=== PATIENT | female | born 1930 | race Caucasian/White ===

== ENCOUNTER → 2020-06-03 | Outpatient (CLI) | payer MEDICARE ==
[~2020-06-03] MED LIST: ALPR0.25 PO; ASPI-630 PO; CALC-38 PO; ESTR0.5T3 PO; FLUO40CA9 PO; GABA300C18 PO; IOHEXOL 180 MG/ML 10 ML VIAL. ONE; MULT-245 PO; OMEG100021 PO; OMEP10SU2 PO; PRAM0.255 PO; SIMV40TA PO; UBID100C26 PO; VALS1TAB8 PO; [UNRECOGNIZED DRUG - CODE] PO; methylPREDNISolone ACETATE 40 MG/ML VIAL. ONE; methylPREDNISolone ACETATE 80 MG/ML VIAL. ONE
--- NOTE | 2020-06-03 13:25 | PAIN ---
DATE OF SERVICE: 06/03/2020 INITIAL CONSULTATION FOR PAIN CLINIC CHIEF COMPLAINT: Low back pain, bilateral lower extremity pain. HISTORY OF PRESENT ILLNESS: This is an 89-year-old female who presents with history of pain in the low back, bilateral lower extremities for many years, worse since 07/2019. She had lumbar surgery for decompression in 2016 which decreased some of the pain, but not all. The patient reports the pain is still in the low back and bilateral lower extremities, posterior gluteus, posterior thighs, lateral thighs, anterior thighs. The patient reports it is worse with walking, standing, changing positions, better with sitting or lying down, keeps her awake from sleep at night about twice a night, awakens her from sleep. The patient reports it does not affect her bowel or bladder control, but does affect her ability to walk. She is using a walker and has it with her today. The patient reports she takes it with her wherever she goes. The patient reports she has had epidural injections prior to her surgery, which were helpful. Has had physical therapy, also chiropractic treatment, all of which helped her with temporary relief recently. The patient reports she has tried tramadol, Tylenol Arthritis as well as ibuprofen, none of which have helped decrease the pain significantly. The patient describes the pain as stabbing and throbbing in the back, shooting pain with numbness and radiating pain in the lower extremities, worse during the day, is worse with activities as time goes on, also burning, cramping, and aching sensation in the legs, again right essentially equal to left. The patient rates her disability rating from 0-10, 10 being the worst, as a 7 with family and home responsibilities, 10 with recreation, 8 with social activity, 7 with self-care, 5 with occupational activities, and 5 with life support activities. 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 PAST MEDICAL HISTORY: Significant for arthritis, hypertension, non-Hodgkin's lymphoma in 1980, status post chemotherapy with remission, mitral regurgitation, hyperlipidemia, gastroesophageal reflux, urinary incontinence, frequent urinary tract infections, depression, and difficult balance. PREVIOUS SURGERY: Includes tonsillectomy, total abdominal hysterectomy, cataract extractions, lumbar decompression. CURRENT MEDICATIONS: Include daily baby aspirin, gabapentin, Xanax, Coenzyme Q10, fish oils, estradiol, Diovan, Zocor, Prilosec, Mirapex, multivitamins, calcium and glucosamine. ALLERGIES: THE PATIENT IS ALLERGIC TO CRESTOR, WELLBUTRIN, AND LIPITOR. FAMILY HISTORY: Significant for restless leg syndrome, and depression. SOCIAL HISTORY: The patient does not drink alcohol, does not smoke. Does not use any illegal, illicit or recreational drugs. She is , lives locally in [place], [place]. Reports she is currently retired. REVIEW OF SYSTEMS: The patient's review of systems is positive for those items mentioned in history of present illness. All systems reviewed and otherwise negative. It is complete, full and well documented on the patient's chart. PHYSICAL EXAMINATION: VITAL SIGNS: The patient's blood pressure 133/77, pulse is 87, respirations 16, temperature is 98.0 degrees Fahrenheit, height is 5 feet 4 inches, weight is 208 pounds. GENERAL: The patient is awake, alert, oriented, appropriate, very pleasant demeanor. HEENT: Shows normocephalic, atraumatic. Extraocular movements are intact and symmetrical. Oral cavity shows mucous membranes moist and pink. Dentition is intact. NECK: Shows anterior throat supple without palpable lymphadenopathy noted. Swallow reflex symmetrical. CHEST: Shows normal on inspection. Breath sounds are clear bilaterally. No rales, rhonchi or wheezes. HEART: Shows S1 and S2 clear. No murmurs auscultated. ABDOMEN: Soft, nontender, nondistended. No palpable organomegaly is noted. No rebound or guarding demonstrated. BACK: The patient's back shows spine grossly in midline. Slight exaggeration of thoracic kyphosis, minor flattening of lumbar lordotic curvature with well-healed surgical scar in the midline. The patient's back shows no tenderness to palpation over the spinous processes, sacrum or sacroiliac regions. The patient has good rotational motion of lumbar spine, both laterally greater than 10 degrees right and left as well as extension greater than 10 degrees, forward flexion 45 degrees without significant increase in pain. EXTREMITIES: Lower extremities show deep tendon reflexes at 1+ in patellar and tendo calcaneus tendons are equal. Motor exam is strong with 5/5 dorsiflexion, extension, quadriceps and hamstring flexion symmetrical. Peripheral pulses are 1+ posterior tibia. No peripheral edema is noted bilaterally. Straight leg raise noted to be negative for reproduction of radicular symptoms bilaterally. Gaenslen's and Jude's maneuvers are negative bilaterally as well. The patient is able to stand, stand on her toes without significant difficulty or loss of balance. The patient is using a 3-point walker actually to ambulate with wheels on it. She does have a slight shuffling gait, but appears to not favor the right or left lower extremity significantly over the other. SKIN: Shows warm and dry, good turgor. No edema. No sores, rashes or bruising. IMPRESSION: 1. This is an 89-year-old female with a long history of low back pain, bilateral lower extremity pain, worse over the past 10 months or so without specific injury or accident. 2. MRI scan of lumbar spine as noted. 3. Hypertension. 4. Arthritis. 5. Previous non-Hodgkin's lymphoma. PLAN: Options were discussed with the patient including conservative medical managements, physical therapies and interventional techniques. She would like to pursue interventional techniques. We discussed a lumbar epidural steroid injection using description as well as anatomical models to describe the procedure. Risks were then discussed including, but not limited to bleeding, infection, possibility of epidural hematoma, subsequent neurological compromise, dural puncture, headaches, spinal cord and/or nerve damage, side effects of steroid medication and poor results regarding pain control. The patient understands and wished to proceed. The patient will return to clinic in approximately 2 weeks for followup. She was counseled on return appointment, activity level and side effects to be aware of. DIAGNOSES: Lumbar radiculopathy with lumbar degenerative disk disease and lumbar spinal stenosis and lumbar post-laminectomy syndrome. PROCEDURE: Lumbar epidural steroid injection, translaminar approach L4-L5 level using C-arm fluoroscopic guidance under sterile prep and drape using local anesthetic. MEDICATION INJECTED: A total of 120 mg Depo-Medrol plus 10 mL of preservative-free normal saline and 2 mL of contrast. CONDITION AT DISCHARGE: Stable. The patient tolerated procedure well, had no complications. DAVE SCHROEDER MD DR: SAVANA/christian JOB#: [id number] / [id number] BEVERLEY Greenfield MD
== END | disposition home or self-care (01) ==
LOC: PNCL 11:02
PROVIDERS: ATTEND Anesthesiology
DX: M51.16 Intervertebral disc disorders with radiculopathy, lumbar region (principal); M48.061 Spinal stenosis, lumbar region without neurogenic claudication; M96.1 Postlaminectomy syndrome, not elsewhere classified; M19.90 Unspecified osteoarthritis, unspecified site; I10 Essential (primary) hypertension; E78.5 Hyperlipidemia, unspecified; K21.9 Gastro-esophageal reflux disease without esophagitis; Z85.72 Personal history of non-Hodgkin lymphomas; Z88.8 Allergy status to other drugs, medicaments and biological substances; Z79.899 Other long term (current) drug therapy; Z98.890 Other specified postprocedural states
CPT/HCPCS: 62323; J1030; J1040; Q9965

== ENCOUNTER → 2020-06-17 | Outpatient (CLI) | payer MEDICARE ==
[~2020-06-17] MED LIST changes: +GLUC1CAP66 PO; +HYDR-3164 PO; -[UNRECOGNIZED DRUG - CODE] PO
--- NOTE | 2020-06-17 11:32 | PDOC ---
Progress Note - Pain Clinic Date of Service: DOS: DATE: 06/17/20 TIME: 11:28 Diagnosis: Dx: Lumbar radiculopathy with lumbar degenerative disease lumbar spinal stenosis and post lumbar laminectomy syndrome History or Present Illness: HPI: 89-year-old female returns follow-up status post lumbar epidural steroid injection x1. Patient was about 25% improvement in low back and bilateral lower extremities patient reports increasing activities greater ease and comfort specially the first week she has been getting around better patient reports that her son is noted she is in walking with greater ease and comfort she also feels that she is walking better on her own patient reports he still has pain the low back in the posterior gluteus posterior lateral thighs posterior calves worse with walking standing change positions jammies not awaken her from sleep at night. Patient rates her pain a 7 on a scale of 10 is worse of the past week 7 on average to its least and 7 today. Patient was aching shooting stabbing cramping and burning in the low back on and off in intensity in the lower extremities patient reports no new motor or sensory deficits no new bowel bl adder control complaints. Patient is using ibuprofen as well as Tylenol also Voltaren gel on her back which seems to help by a mild extent as well. Physical Exam: VS: Blood pressure 134/59 pulse 87 respirations 18 temperature 98.2 F weight is 207 PE: PHYSICAL EXAMINATION: GENERAL: The patient is awake, alert, oriented, appropriate, very pleasant demeanor HEENT: Shows normocephalic, atraumatic. Extraocular movements are intact and symmetrical. Oral cavity: Mucous membranes moist and pink. Dentition is intact. NECK: Shows anterior throat supple without palpable lymphadenopathy noted. Swallow reflex symmetrical. CHEST: Shows normal on inspection. Breath sounds are clear bilaterally. HEART: Shows S1, S2 clear. No murmurs auscultated. ABDOMEN: Soft, nontender, nondistended. No palpable organomegaly is noted. No rebound or guarding demonstrated. BACK: Shows spine grossly in the midline. Normal-appearing cervical lordotic curvature. There is slightly increased thoracic kyphosis, some minor flattening of the lumbar lordotic curvature. Lumbar paraspinous muscles show symmetrical on inspection, on palpation shows some moderate tenderness diffusely throughout the upper, middle and lower distribution of the paraspinous muscles but without specific trigger points, without radiation of pain. The patient has good rotational motion of the lumbar spine, both laterally as well as extension and flexion without significant difficulty. No tenderness over the spinous processes, sacrum or sacroiliac regions. EXTREMITIES: Lower extremities show deep tendon reflexes 1+ in the patellar and tendo calcaneus tendons. Motor exam is 5 on a scale of 5 with right dorsiflexion, extension, quadriceps and hamstring flexion and 5/5 on the left. Peripheral pulses are 1+ posterior tibial. [] peripheral edema is noted bilaterally. Lower extremities are warm and dry to touch, equal in color and appearance. SKIN: Shows warm and dry, good turgor. No edema. No sores, rashes or bruising throughout. Procedure: Procedure: Options were discussed with the patient. Patient chart reviewed as her current medication regimen updated current review of systems updated today as well we will proceed with a second series lumbar epidural steroid x-ray with fluoroscopic guidance risks are again discussed including but not limited to bleeding infection possibility of epidural hematoma subsequent neurological compromise dural puncture headache spinal cord and or nerve damage side effects of steroid medication for those chronic pain control. Patient understands wished to proceed. Patient return to clinic in approximate 2 weeks for follow- up was counseled as to return appointment activity level and side effects to be aware of. Medication Injected: Med Injected: Procedure is lumbar epidural steroid injection under local anesthetic using sterile prep and drape at the L4-5 level using C-arm fluoroscopic guidance in both AP and lateral views medications injected is 120 mg Depo-Medrol + 10 mL preservative-free normal saline and 2 mL contrast- condition at discharge is stable patient tolerated procedure well had no complications. Condition at Discharge: Condition at Discharge: Condition at discharge is stable patient procedure well had no complications. DAVE SCHROEDER MD Jun 17, 2020 11:32
== END | disposition home or self-care (01) ==
LOC: PNCL 10:22
PROVIDERS: ATTEND Anesthesiology
DX: M51.16 Intervertebral disc disorders with radiculopathy, lumbar region (principal); M48.061 Spinal stenosis, lumbar region without neurogenic claudication; I10 Essential (primary) hypertension; K21.9 Gastro-esophageal reflux disease without esophagitis; Z88.8 Allergy status to other drugs, medicaments and biological substances; Z98.890 Other specified postprocedural states; Z79.899 Other long term (current) drug therapy
CPT/HCPCS: 62323; J1030; J1040; Q9965

== ENCOUNTER 2020-06-18 00:38 | Emergency (ER) | payer MEDICARE ==
[~2020-06-18] VITALS: Ht 165.1 cm; Wt 100.0 kg
[~2020-06-18 00:38] MED LIST changes: -HYDR-3164 PO; -IOHEXOL 180 MG/ML 10 ML VIAL. ONE; -methylPREDNISolone ACETATE 40 MG/ML VIAL. ONE; -methylPREDNISolone ACETATE 80 MG/ML VIAL. ONE
[2020-06-18] MEDS ORDERED: KETOROLAC 30 MG/ML VIAL. IM ONE (01:15)
[2020-06-18] MEDS ORDERED: MORPHINE SULFATE 4 MG/ML VIAL. IM ONE (01:15)
[2020-06-18] MEDS ORDERED: ONDANSETRON ODT 4 MG TAB.RAPDIS. PO ONE (01:15)
--- NOTE | 2020-06-18 01:18 | PHYS DOC ---
Past Medical History Past Medical History: GERD, Hypertension Additional Past Medical Histor: Bladder incontinence Past Surgical History: Hysterectomy, Tonsillectomy Additional Past Surgical Histo: Cataract surgery Smoking Status: Never Smoker Alcohol Use: None General Adult EDM: Chief Complaint: MUSCLE SPASM/CRAMP HPI: HPI: Patient is a 89 year old female who presents with severe lower back pain that radiates to bilateral legs that began around 3 PM on June 17. Patient states that she had an injection in her lower thoracic area that was not an epidural steroid injection earlier in the day on the . Patient states she has got severe pain with range of motion and movement that has improved with rest but is quite debilitating. Patient states the pain is sharp and radiates down both legs. Patient denies any new numbness and has some weakness in the legs that is due to pain but not neurological dysfunction. Patient denies any bowel or bladder incontinence. Patient denies any fever. Review of Systems: Review of Systems: Constitutional: Denies fever or chills. [] Eyes: Denies change in visual acuity. [] HENT: Denies nasal congestion or sore throat. [] Respiratory: Denies cough or shortness of breath. [] Cardiovascular: Denies chest pain or edema. [] GI: Denies abdominal pain, nausea, vomiting, bloody stools or diarrhea. [] : Denies dysuria. [] Musculoskeletal: Complains of back pain but no joint pain Integument: Denies rash. [] Neurologic: Denies headache, without focal weakness or sensory changes. [] No bowel or bladder incontinence Endocrine: Denies polyuria or polydipsia. [] Lymphatic: Denies swollen glands. [] Psychiatric: Denies depression or anxiety. [] Heart Score: Risk Factors: Risk Factors: DM, Current or recent (<one month) smoker, HTN, HLP, family history of CAD, obesity. Risk Scores: Score 0 - 3: 2.5% MACE over next 6 weeks - Discharge Home Score 4 - 6: 20.3% MACE over next 6 weeks - Admit for Clinical Observation Score 7 - 10: 72.7% MACE over next 6 weeks - Early Invasive Strategies Current Medications: Current Medications Medications (Trade) Dose Ordered Sig/Archie Start Time Stop Time Status Last Admin Dose Admin Ketorolac Tromethamine (Toradol Im) 30 mg 1X ONCE 06/18/20 01:15 06/18/20 01:16 UNV Morphine Sulfate (Morphine Sulfate) 4 mg 1X ONCE 06/18/20 01:15 06/18/20 01:16 UNV Ondansetron HCl (Zofran Odt) 4 mg 1X ONCE 06/18/20 01:15 06/18/20 01:16 UNV Allergies: Allergies: Allergies Coded Allergies Type Severity Reaction Last Updated Verified atorvastatin Adverse Reaction Intermediate 06/03/20 Yes bupropion Adverse Reaction Intermediate 06/03/20 Yes rosuvastatin Adverse Reaction Intermediate 06/03/20 Yes Physical Exam: PE: Constitutional: Well developed, well nourished, no acute distress, non-toxic appearance. [] HENT: Normocephalic, atraumatic, bilateral external ears normal, no trismus, n ose normal. [] Eyes: PERRLA, EOMI, conjunctiva normal, no discharge. [] Neck: Normal range of motion, no tenderness, supple, no stridor. [] Cardiovascular:Heart rate regular rhythm, peripheral pulses intact, cap refill brisk Lungs & Thorax: Bilateral breath sounds clear no respiratory distress Abdomen: soft, no tenderness, no masses, no pulsatile masses. [] Skin: Warm, dry, no erythema, no rash. [] Back: In the lower thoracic area there is a small healed over puncture site. The remaining skin is clear without erythema. Mild tenderness to palpate in the lumbar area. Significant pain with range of motion. Extremities: No tenderness, no cyanosis, no clubbing, ROM intact, no edema. [] Neurologic: Alert and oriented X 3, normal motor function, normal sensory function, no focal deficits noted. [] No saddle anesthesia, dorsiflexion to the great toes is intact bilateral lower extremities Psychologic: Affect normal, judgement normal, mood normal. [] Current Patient Data: Vital Signs: Vital Signs Date Time Temp Pulse Resp B/P (MAP) Pulse Ox O2 Delivery O2 Flow Rate FiO2 06/18/20 00:52 97.2 98 18 195/82 (119) 100 Room Air 97.2 EKG: EKG: [] Radiology/Procedures: Radiology/Procedures: [] Course & Med Decision Making: Course & Med Decision Making Pertinent Labs and Imaging studies reviewed. (See chart for details) [] Patient reassessed at 2:28 AM and feels much better. Patient feels like she is got up to go home. Patient has back pain that radiates to the legS she has normal dorsiflexion to the bilateral lower extremities. She is got no saddle anesthesia. No signs of cauda equina. No fevers to suggest epidural abscess. The injection was not in the epidural space I doubt she has a hematoma or an abscess. Dragon Disclaimer: Dragon Disclaimer: This electronic medical record was generated, in whole or in part, using a voice recognition dictation system. Departure Departure Impression: Primary Impression: Lumbar back pain with radiculopathy affecting left lower extremity Additional Impression: Lumbar back pain with radiculopathy affecting right lower extremity Disposition: HOME, SELF-CARE Condition: STABLE Referrals: BEVERLEY CASTRO (PCP) 2-3 DAYS Patient Instructions: Sciatica Additional Instructions: EMERGENCY DEPARTMENT GENERAL DISCHARGE INSTRUCTIONS THANK YOU for coming to [facility] Emergency Department (ED) today and trusting us with your care. We trust that you had a positive experience in our Emergency Department. If you wish to speak to the department Management you can contact the departmental secretary at . YOUR FOLLOW UP INSTRUCTIONS ARE FOLLOWS: Do you have a private doctor? If you do not have a private doctor, please ask for a resource list of physicians or clinics that may be able to assist you with follow up care. The Emergency Physician has interpreted your x-rays. The X-ray specialist will also review them. If there is a change in the findings you will be notified in 48 hours when at all possible. A lab test or lab culture may have been done, your results will be reviewed and you will be notified if you need a change in treatment. ADDITIONAL INSTRUCTIONS AND INFORMATION Your care today has been supervised by a physician who is specially trained in emergency care. Many problems require more than one evaluation for a complete diagnosis and treatment. We recommend that you schedule your follow up appointment as recommended to ensure complete treatment of your illness or injury. If you are unable to obtain follow up care and continue to have a problem, or if your condition worsens we recommend that you return to the ED. We are not able to safely determine your condition over the phone nor are we able to give sound medical advice over the phone. For these safety reasons, if you call for medical advice we will ask you to come to the ED for further evaluation If you have any questions regarding these discharge instructions please call the ED at . SAFETY INFORMATION In the interest of safety, wellness, and injury prevention; we encourage you to wear your seatbelt, if you smoke; quit smoking, and we encourage your family to use protective helmet for bicycling and other sporting events that present an increased risk for head injury. IF YOUR SYMPTOMS WORSEN OR NEW SYMPTOMS DEVELOP, OR YOU HAVE CONCERNS ABOUT YOUR CONDITION; OR IF YOUR CONDITION WORSENS WHILE YOU ARE WAITING FOR YOUR FOLLOW UP APPOINTMENT; EITHER CONTACT YOUR PRIMARY CARE DOCTOR, THE PHYSICIAN WHOSE NAME AND NUMBER YOU WERE GIVEN, OR RETURN TO THE ED IMMEDIATELY. Scripts Hydrocodone/Apap 5-325 (NORCO 5-325 TABLET) 1 Each Tablet 1 EACH PO PRN Q6HRS PRN for PAIN, #15 as needed for pain Prov: DAREN MAK MD 06/18/20 Justicifation of Admission Dx: Justifications for Admission: Justification of Admission Dx: N/A DAREN MAK MD Jun 18, 2020 01:18
[2020-06-18 02:26] VITALS: BP 163/69
[2020-06-18] MEDS ORDERED: HYDR-3164 PO (02:30)
== END 2020-06-18 02:55 | disposition home or self-care (01) ==
LOC: ER 00:38
DX: M54.16 Radiculopathy, lumbar region (principal); M79.604 Pain in right leg; M79.605 Pain in left leg; R53.1 Weakness; K21.9 Gastro-esophageal reflux disease without esophagitis; I10 Essential (primary) hypertension; Z90.710 Acquired absence of both cervix and uterus; Z88.8 Allergy status to other drugs, medicaments and biological substances
CPT/HCPCS: 96372; 99284; J1885; J2270

== ENCOUNTER → 2020-07-02 | Outpatient (CLI) | payer MEDICARE ==
[2020-06-18 02:26] VITALS: BP 163/69
[~2020-07-02] MED LIST changes: +BUPIVACAINE MPF 0.25% 10 ML VIAL. ONE; +HYDR-3164 PO; +methylPREDNISolone ACETATE 40 MG/ML VIAL. ONE
--- NOTE | 2020-07-02 12:01 | PDOC ---
Progress Note - Pain Clinic Date of Service: DOS: DATE: 07/02/20 TIME: 11:56 Diagnosis: Dx: Lumbar radiculopathy with lumbar degenerative disc disease lumbar spinal stenosis post lumbar automatically syndrome Myofascial pain History or Present Illness: HPI: 89-year-old female returns follow-up status post lumbar epidural stimulation x2. Patient reports about 25% improvement but after her last injection she had significant spasms and was presenting to the emergency department later that night where she received muscle relaxants as well as IV morphine. Patient ports at that time the pain subsided but still has some significant pain in the low back but much improved and much less pain in the lower extremities than she had previously. Patient was to increase her distance walking doing household activities greater ease and comfort as well as try with greater ease and comfort but is been awakened from sleep at night patient has pain on the right side with been more spastic. Patient reports she did get some muscle relaxants from her primary care physician which does help but makes her fairly drowsy. Patient ports no new motor or sensory deficits no new bowel or bladder incontinence patient reports her pain is a 10 on a scale of 10 is worse over the past week 5 on average to its least is a 5 today patient scribes as aching and shooting cramping on and off in intensity worse at night keeping her awake although she gets in a recliner she is able to sleep fairly comfortably. Physical Exam: VS: Pressure is 140/62 pulse 60 respirations 18 temperature 90.1 external height 5 feet 5 inches weight 206 pounds PE: PHYSICAL EXAMINATION: GENERAL: The patient is awake, alert, oriented, appropriate, very pleasant demeanor HEENT: Shows normocephalic, atraumatic. Extraocular movements are intact and symmetrical. Oral cavity: Mucous membranes moist and pink. NECK: Shows anterior throat supple without palpable lymphadenopathy noted. Swallow reflex symmetrical. CHEST: Shows normal on inspection. Breath sounds are clear bilaterally. HEART: Shows S1, S2 clear. No murmurs auscultated. ABDOMEN: Soft, nontender, nondistended. No palpable organomegaly is noted. No rebound or guarding demonstrated. BACK: Shows spine grossly in the midline. Normal-appearing cervical lordotic curvature. There is slightly increased thoracic kyphosis, some minor flattening of the lumbar lordotic curvature. Lumbar paraspinous muscles show symmetrical on inspection, on palpation shows some moderate tenderness bilaterally in the low thoracic and right upper middle lower distribution the paraspinous musculature in the lumbar distribution in the middle and lower distribution of the left lumbar paraspinous musculature firm ropelike very consistent with trigger point areas of musculature very tender to palpation but without specific radiation. Patient has significant tenderness in the right gluteus as well in the superior medial aspect with very firm ropelike musculature consistent with trigger point areas of musculature in this area as well again without radiation on palpation. Diffusely throughout the upper, middle and lower distribution of the paraspinous muscles bilaterally and also into the lower thoracic paraspinous musculature, firm and tender, but with specific trigger points, as noted, without radiation of pain. The patient has good rotational motion of the lumbar spine, both laterally as well as extension and flexion without significant difficulty. No tenderness over the spinous processes, sacrum or sacroiliac r egions. EXTREMITIES: Lower extremities show deep tendon reflexes 1+ in the patellar and tendo calcaneus tendons. Motor exam is 5 on a scale of 5 with right dorsiflexion, extension, quadriceps and hamstring flexion and 5/5 on the left. Peripheral pulses are 1 posterior tibial. No peripheral edema is noted bilaterally. Lower extremities are warm and dry to touch, equal in color and appearance. SKIN: Shows warm and dry, good turgor. No edema. No sores, rashes or bruising throughout. Procedure: Procedure: Options were discussed with the patient and patient's daughter who was present with her today. We will plan on trigger point injection of the identified musculature. Risks were discussed including but not limited to bleeding infection possibility of spread of local anesthetic and numbness intravascular injection sequelae and poor results regarding pain control. Patient understands wished to proceed patient return to clinic in approximately 2 weeks for follow- up was counseled to return appointment to [facility] and side effects to be aware. Medication Injected: Med Injected: Under sterile prep and drape patient in sitting position patient is thoracic lumbar and gluteus musculature was prepped using sterile prep and draped in the usual fashion identified trigger point musculature in the bilateral thoracic bilateral lumbar and right gluteus musculature was identified and injected with 25-gauge 1-1/2 inch needle after negative aspiration each injection site total medications injected 40 mg Depo-Medrol +8 cc 0.25% bupivacaine. Patient, tolerated the procedure well and had no complications. Condition at Discharge: Condition at Discharge: Condition at discharge stable patient on the procedure well had no complications DAVE SCHROEDER MD Jul 02, 2020 12:01
== END | disposition home or self-care (01) ==
LOC: PNCL 10:20
PROVIDERS: ATTEND Anesthesiology
DX: M51.16 Intervertebral disc disorders with radiculopathy, lumbar region (principal); M48.061 Spinal stenosis, lumbar region without neurogenic claudication; M79.18 Myalgia, other site; Z79.82 Long term (current) use of aspirin; Z79.899 Other long term (current) drug therapy; Z88.8 Allergy status to other drugs, medicaments and biological substances
CPT/HCPCS: 20553; J1030; J3490

== ENCOUNTER → 2020-10-01 | Outpatient (CLI) | payer MEDICARE ==
[~2020-10-01] MED LIST changes: -BUPIVACAINE MPF 0.25% 10 ML VIAL. ONE; +IOHEXOL 180 MG/ML 10 ML VIAL. ONE; +methylPREDNISolone ACETATE 80 MG/ML VIAL. ONE
--- NOTE | 2020-10-01 11:38 | PDOC ---
Progress Note - Pain Clinic Date of Service: DOS: DATE: 10/01/20 TIME: 11:35 Diagnosis: Dx: Lumbar radiculopathy with lumbar degenerative disc disease lumbar spinal stenosis and post lumbar laminectomy syndrome Myofascial pain History or Present Illness: HPI: 89-year-old female returns follow-up status post lumbar epidural steroid traction x2 and trigger point injections. Patient reports the pain is returning but was doing much better after the last epidural injection the myofascial pain is still persistent without significant reduction with trigger point injections on her last visit. Patient's last epidural injection was June 17, 2020 patient reports about 25% overall improvement initially was doing much better for the first week or 2 but the pain returned. Patient reports he is also doing much better with physical therapy at that time and was getting much stronger but she has not done much any exercising over the past 2 months or so and feels that her legs are getting weaker she has significant tenderness in the lateral hips as well as in the thighs especially in the low back rating the posterior gluteus on the left side posterior left thigh posterior left calf into the foot with some burning sensation in the leg pain becoming more progressive with time. Patient reports it is difficult having a bowel movement. Describes the pain in the back and legs burning cramping stabbing it wakes her from sleep occasionally but not most nights describes it can be constant but mostly in the leg is on and off but the back pain is constant. Patient rates her pain a 9 on scale 10 is worse with past week 6 on average and a 3 at its least and is a 6 today. Fran wilde reports no new motor or sensory deficits no bladder consult complaints. Physical Exam: VS: Blood pressure is 133/70 pulse 81 respirations 16 temperature 97.9 F weight is 201 PE: PHYSICAL EXAMINATION: GENERAL: The patient is awake, alert, oriented, appropriate, very pleasant demeanor HEENT: Shows normocephalic, atraumatic. Extraocular movements are intact and symmetrical. Oral cavity: Mucous membranes moist and pink. NECK: Shows anterior throat supple without palpable lymphadenopathy noted. Swallow reflex symmetrical. CHEST: Shows normal on inspection. Breath sounds are clear bilaterally. HEART: Shows S1, S2 clear. No murmurs auscultated. ABDOMEN: Soft, nontender, nondistended. No palpable organomegaly is noted. BACK: Shows spine grossly in the midline. Normal-appearing cervical lordotic curvature. There is slightly increased thoracic kyphosis, some minor flattening of the lumbar lordotic curvature. Lumbar paraspinous muscles show symmetrical on inspection, on palpation shows some moderate tenderness diffusely throughout the upper, middle and lower distribution of the paraspinous muscles, but without specific trigger points, without radiation of pain. The patient has good rotational motion of the lumbar spine, both laterally as well as extension and flexion without significant difficulty. No tenderness over the spinous processes, sacrum or sacroiliac regions. EXTREMITIES: Lower extremities show deep tendon reflexes 1+ in the patellar and tendo calcaneus tendons. Motor exam is 5 on a scale of 5 with right dorsiflexion, extension, quadriceps and hamstring flexion and 5/5 on the left. Peripheral pulses are 1+ posterior tibial. No peripheral edema is noted bilaterally. Lower extremities are warm and dry to touch, equal in color and appearance. Patient has moderate tenderness over the bilateral greater trochanters more on the left than the right without specific radiation. SKIN: Shows warm and dry, good turgor. No edema. No sores, rashes or bruising throughout. Procedure: Procedure: Patient discussed with the patient patient daughter who accompanied her visit today. We will proceed with a third in the series lumbar epidural steroid injection today with fluoroscopic guidance. Risks were discussed including but not limited to: Bleeding, infection, possibility of epidural hematoma and subsequent neurological compromise, dural puncture, headaches, spinal cord and/or nerve damage, side effects of steroid medication, and poor results regarding pain control. Patient understands wished to proceed. Patient will return to the clinic in approximate 2 weeks for follow-up, was counseled as to return appointment activity level and side effects to be aware of. Medication Injected: Med Injected: Procedure is lumbar epidural steroid injection under local anesthetic using sterile prep and drape at the L5-S1 level using C-arm fluoroscopic guidance in both AP and lateral views medications injected is 120 mg Depo-Medrol + 10 mL preservative-free normal saline and 2 mL contrast- condition at discharge is stable patient tolerated procedure well had no complications. Condition at Discharge: Condition at Discharge: Condition at discharge stable, patient tolerated seizure well had no complications. We will arrange for home physical therapy as well orders were sent. DAVE SCHROEDER MD Oct 01, 2020 11:38
== END | disposition home or self-care (01) ==
LOC: PNCL 09:53
PROVIDERS: ATTEND Anesthesiology
DX: M51.16 Intervertebral disc disorders with radiculopathy, lumbar region (principal); M48.061 Spinal stenosis, lumbar region without neurogenic claudication; M96.1 Postlaminectomy syndrome, not elsewhere classified; M79.18 Myalgia, other site; Z79.82 Long term (current) use of aspirin; Z79.899 Other long term (current) drug therapy; Z98.890 Other specified postprocedural states; Z88.8 Allergy status to other drugs, medicaments and biological substances
CPT/HCPCS: 62323; J1030; J1040; Q9965

== ENCOUNTER → 2020-12-08 | Outpatient (CLI) | payer MEDICARE ==
[~2020-12-08] MED LIST changes: +ACET-1871 PO; +IBUP-1027 PO; +METH-38 PO
--- NOTE | 2020-12-08 10:53 | PDOC ---
Progress Note - Pain Clinic Date of Service: DOS: DATE: 12/08/20 TIME: 10:49 Diagnosis: Dx: Lumbar radiculopathy with lumbar degenerative disc disease lumbar spinal stenosis and post lumbar laminectomy syndrome Myofascial pain History or Present Illness: HPI: 89-year-old female returns to follow-up status post lumbar epidural steroid injections x3 most recent October 01, 2020. Patient reports she did very well with about a 75% improvement overall now is about 50% improvement since her last visit patient reports pain is returning in the low back and the bilateral lower extremities mostly the posterior gluteus posterior lateral thighs posterior calv es worse with walking standing changing positions and also her balance has been off as well. Patient reports pain is aching sharp dull tight shooting in the back stabbing and radiating the lower extremities are cramping in the back as well can be severe with activity but on and off in intensity better with sitting or laying down awakens her from sleep. More recently about every 4-5 hours. Patient reports she does better with heat application stretching and she is seeing a physical therapist currently which is helpful as well. Patient rates the pain is a 10 on scale 10 is worse over the past week 7 on average 1 its least and is a 7 today. Patient reports she would like to try different physical therapist though as she feels when she has now is not suppressive it she needs massages patient son who is with her today reports that he will find a different therapist as he knows when that she can see. Physical Exam: VS: Blood pressure is 152/85 pulse 83 respirations 16 temperature 98.0 F weight is 200 pounds PE: PHYSICAL EXAMINATION: GENERAL: The patient is awake, alert, oriented, appropriate, very pleasant demeanor HEENT: Shows normocephalic, atraumatic. Extraocular movements are intact and symmetrical. Oral cavity: Mucous membranes moist and pink. NECK: Shows anterior throat supple without palpable lymphadenopathy noted. Swa llow reflex symmetrical. CHEST: Shows normal on inspection. Breath sounds are clear bilaterally, no rales or rhonchi. HEART: Shows S1, S2 clear. No murmurs auscultated. ABDOMEN: Soft, nontender, nondistended, obese. No palpable organomegaly is noted. BACK: Shows spine grossly in the midline. Normal-appearing cervical lordotic curvature. There is slightly increased thoracic kyphosis, some flattening of the lumbar lordotic curvature. Well-healed surgical scar is noted. Lumbar paraspinous muscles show symmetrical on inspection, on palpation shows some moderate tenderness diffusely throughout the upper, middle and lower distrib ution of the paraspinous muscles, but without specific trigger points, without radiation of pain. The patient has good rotational motion of the lumbar spine, both laterally as well as extension and flexion without significant difficulty. No tenderness over the spinous processes, sacrum or sacroiliac regions. EXTREMITIES: Lower extremities show deep tendon reflexes 1+ in the patellar and tendo calcaneus tendons. Motor exam is 5 on a scale of 5 with right dorsiflexion, extension, quadriceps and hamstring flexion and 5/5 on the left. Peripheral pulses are 1+ posterior tibial. [] peripheral edema is noted bilaterally. Lower extremities are warm and dry to touch, equal in color and appearance. SKIN: Shows warm and dry, good turgor. No edema. No sores, rashes or bruising throughout. Procedure: Procedure: Options were discussed with the patient. Patient will chart reviews her current medication regimen updated current review of systems updated today as well. We will proceed with a first in the series lumbar epidural steroid injection today with fluoroscopic guidance. Risks were discussed including but not limited to: Bleeding, infection, possibility of epidural hematoma and subsequent neurological compromise, dural puncture, headaches, spinal cord and/or nerve damage, side effects of steroid medication, and poor results regarding pain control. Patient understands and wished to proceed. Patient return to clinic in approximate 2 weeks for follow-up, was counseled as return appointment activity level, and side effects to be aware of. Medication Injected: Med Injected: Procedure is lumbar epidural steroid injection under local anesthetic using sterile prep and drape at the L5-S1 level using C-arm fluoroscopic guidance in both AP and lateral views medications injected is 120 mg Depo-Medrol + 10 mL preservative-free normal saline and 2 mL contrast- condition at discharge is stable patient tolerated procedure well had no complications. Condition at Discharge: Condition at Discharge: Condition at discharge stable, patient tolerated the procedure well and had no complications. DAVE SCHROEDER MD Dec 08, 2020 10:53
--- NOTE | 2020-12-08 10:54 | PDOC4 ---
PROCEDURE Procedure Patient was consented for lumbar epidural steroid injection. Risks were dis cussed including but not limited to: Bleeding, infection, possibility of epidural hematoma and subsequent neurological compromise, dural puncture, headaches, spinal cord and/or nerve damage, side effects of steroid medication, and poor results regarding pain control. Patient understands and wished to proceed. Procedure is lumbar epidural steroid injection under local anesthetic using sterile prep and drape at the 5 S1 level using C-arm fluoroscopic guidance in both AP and lateral views medications injected is 120 mg Depo-Medrol + 10 mL preservative-free normal saline and 2 mL contrast- condition at discharge is stable patient tolerated procedure well had no complications. DAVE SCHROEDER MD Dec 08, 2020 10:54
== END | disposition home or self-care (01) ==
LOC: PNCL 09:48
PROVIDERS: ATTEND Anesthesiology
DX: M51.16 Intervertebral disc disorders with radiculopathy, lumbar region (principal); M48.061 Spinal stenosis, lumbar region without neurogenic claudication; M96.1 Postlaminectomy syndrome, not elsewhere classified; M79.10 Myalgia, unspecified site; Z79.82 Long term (current) use of aspirin; Z79.899 Other long term (current) drug therapy; Z88.8 Allergy status to other drugs, medicaments and biological substances; Z98.890 Other specified postprocedural states
CPT/HCPCS: 62323; J1030; J1040; Q9965

== ENCOUNTER → 2020-12-31 | Outpatient (CLI) | payer MEDICARE ==
--- NOTE | 2020-12-31 12:08 | PDOC ---
Progress Note - Pain Clinic Date of Service: DOS: DATE: 12/31/20 TIME: 12:05 Diagnosis: Dx: Lumbar radiculopathy with lumbar degenerative disease and lumbar spinal stenosis with post lumbar laminectomy syndrome Myofascial pain History or Present Illness: HPI: 89-year-old female returns follow-up status post lumbar epidural steroid action x1. Patient reports she did very well at 90% improvement for the first week and a half or so when the pain began to return then in the low back and bilateral lower extremities mostly the posterior gluteus posterior lateral thigh lateral anterior thigh anteromedial thighs and lower legs bilaterally patient reports is worse with walking standing changing positions for the first week and a half or so though she was increasing her distance walking doing household activities, traveling with greater ease and comfort, now the pain is returning she describes as aching and dull shooting in the low back cramping and stabbing radiating to the lower extremities on and off in intensity better with sitting or laying down generally is not awaken her from sleep at night. Patient rates her pain as a 8 on scale 10 is worse over the past week 5 on average and a 3 at its least and is a 5 today. Reports no new motor or sensory deficits no new bowel or bladder incontinence or other complaints. Physical Exam: VS: Blood pressure is 151/66 pulse 85 respirations 16 temperature 97.9 F height is 5 feet 5 inches weight 197 pounds PE: PHYSICAL EXAMINATION: GENERAL: The patient is awake, alert, oriented, appropriate, very pleasant demeanor HEENT: Shows normocephalic, atraumatic. Extraocular movements are intact and symmetrical. Oral cavity: Mucous membranes moist and pink. NECK: Shows anterior throat supple without palpable lymphadenopathy noted. Swallow reflex symmetrical. CHEST: Shows normal on inspection. Breath sounds are clear bilaterally. HEART: Shows S1, S2 clear. No murmurs auscultated. ABDOMEN: Soft, nontender, nondistended, obese. No palpable organomegaly is noted. BACK: Shows spine grossly in the midline. Normal-appearing cervical lordotic curvature. There is increased thoracic kyphosis, some minor flattening of the lumbar lordotic curvature. Lumbar paraspinous muscles show symmetrical on inspection, on palpation shows some moderate tenderness diffusely throughout the upper, middle and lower distribution of the paraspinous muscles without specific trigger points, without radiation of pain. The patient has good rotational motion of the lumbar spine, both laterally as well as extension and flexion without significant difficulty. EXTREMITIES: Lower extremities show deep tendon reflexes 1+ in the patellar and tendo calcaneus tendons. Motor exam is 5 on a scale of 5 with right dorsiflexion, extension, quadriceps and hamstring flexion and 5/5 on the left. Peripheral pulses are 1+ posterior tibial. No peripheral edema is noted bilaterally. Lower extremities are warm and dry to touch, equal in color and appearance. SKIN: Shows warm and dry, good turgor. No edema. No sores, rashes or bruising throughout. Procedure: Procedure: Options were discussed with the patient. Patient chart was reviewed as her current medication regimen updated current review of systems updated today as well. We will proceed with a second in the series lumbar epidural steroid traction today with fluoroscopic guidance. Risks were discussed including but not limited to: Bleeding, infection, possibility of epidural hematoma and subsequent neurological compromise, dural puncture, headaches, spinal cord and/or nerve damage, side effects of steroid medication, and poor results regarding pain control. Patient understands and wished to proceed. Patient will return to clinic in approximate 2 weeks for follow-up, was counseled as to return appointment activity level, and side effects to be aware of. Medication Injected: Med Injected: Procedure is lumbar epidural steroid injection under local anesthetic using sterile prep and drape at the L5-S1 level using C-arm fluoroscopic guidance in both AP and lateral views medications injected is 120 mg Depo-Medrol + 10 mL preservative-free normal saline and 2 mL contrast- condition at discharge is stable patient tolerated procedure well had no complications. Condition at Discharge: Condition at Discharge: Condition at discharge stable, patient tolerated the procedure well and had no complications. DAVE SCHROEDER MD Dec 31, 2020 12:08
--- NOTE | 2020-12-31 12:09 | PDOC4 ---
PROCEDURE Procedure Patient was consented for lumbar epidural steroid injection. Risks were dis cussed including but not limited to: Bleeding, infection, possibility of epidural hematoma and subsequent neurological compromise, dural puncture, headaches, spinal cord and/or nerve damage, side effects of steroid medication, and poor results regarding pain control. Patient understands and wished to proceed. Procedure is lumbar epidural steroid injection under local anesthetic using sterile prep and drape at the L5-S1 level using C-arm fluoroscopic guidance in both AP and lateral views medications injected is 120 mg Depo-Medrol + 10 mL preservative-free normal saline and 2 mL contrast- condition at discharge is stable patient tolerated procedure well had no complications. DAVE SCHROEDER MD Dec 31, 2020 12:09
== END | disposition home or self-care (01) ==
LOC: PNCL 10:49
PROVIDERS: ATTEND Anesthesiology
DX: M51.16 Intervertebral disc disorders with radiculopathy, lumbar region (principal); M48.061 Spinal stenosis, lumbar region without neurogenic claudication; M96.1 Postlaminectomy syndrome, not elsewhere classified; M79.10 Myalgia, unspecified site; Z79.82 Long term (current) use of aspirin; Z79.899 Other long term (current) drug therapy; Z88.8 Allergy status to other drugs, medicaments and biological substances
CPT/HCPCS: 62323; J1030; J1040; Q9965

== ENCOUNTER → 2021-04-02 | Outpatient (CLI) | payer MEDICARE ==
--- NOTE | 2021-04-02 14:46 | PDOC ---
Progress Note - Pain Clinic Date of Service: DOS: DATE: 04/02/21 TIME: 14:43 Diagnosis: Dx: Lumbar radiculopathy with lumbar degenerative disease lumbar spinal stenosis with post lumbar laminectomy syndrome History or Present Illness: HPI: 89-year-old female returns for follow-up status post lumbar epidural steroid injection x2. Patient reports about 50% improvement after the last injection which was December 30, 2020. Patient reports that she is doing quite well for about 3 months and the pain began to return about 3 to 4 weeks ago in the low back and the bilateral lower extremities also in the posterior gluteus posterior lateral thighs posterior calves as well patient reports initially she is doing better with walking and doing household activities travel with greater ease and comfort sleeping better at night patient reports still is not waking her from sleep most nights. Patient rates pain is a 8 on scale 10 is worst 5 on average 5 its least is a patient rates pain is aching and dull burning in the low back and legs on and off in intensity much better with sitting or laying down with the pain is almost completely relieved. Patient reports no new motor or sensory deficits no new bowel or bladder incontinence or other complaints. Physical Exam: VS: Blood pressure is 142/65 pulse 79 respirations 18 temperature 98.0 F weight is 204 pound PE: PHYSICAL EXAMINATION: GENERAL: The patient is awake, alert, oriented, appropriate, very pleasant demeanor HEENT: Shows normocephalic, atraumatic. Extraocular movements are intact and symmetrical. Oral cavity: Mucous membranes moist and pink. NECK: Shows anterior throat supple without palpable lymphadenopathy noted. Swallow reflex symmetrical. CHEST: Shows normal on inspection. Breath sounds are clear bilaterally, no rales or rhonchi auscultated. HEART: Shows S1, S2 clear. No murmurs auscultated. ABDOMEN: Soft, nontender, nondistended, obese. No palpable organomegaly is noted. BACK: Shows spine grossly in the midline. Normal-appearing cervical lordotic curvature. There is increased thoracic kyphosis, some mild flattening of the lumbar lordotic curvature. Lumbar paraspinous muscles show symmetrical on inspection, on palpation shows some moderate tenderness diffusely throughout the upper, middle and lower distribution of the paraspinous muscles, but without specific trigger points, without radiation of pain. The patient has good rotational motion of the lumbar spine, both laterally as well as extension and flexion without significant difficulty. EXTREMITIES: Lower extremities show deep tendon reflexes one in the patellar and tendo calcaneus tendons. Motor exam is 5 on a scale of 5 with right dorsiflexion, extension, quadriceps and hamstring flexion and 5/5 on the left. Peripheral pulses are 1+ posterior tibial. No peripheral edema is noted bilaterally. Lower extremities are warm and dry to touch, equal in color and appearance. Patient has significant tenderness over the bilateral greater trochanters with significant pain reported with even mild palpation bilaterally and radiation to the lateral thigh bilaterally. SKIN: Shows warm and dry, good turgor. No edema. No sores, rashes or bruising throughout. Procedure: Procedure: Options were discussed with the patient. Patient's old chart was reviewed as her current medication regimen updated current review of systems updated today as well. We will proceed with a third in the series lumbar epidural steroid injection today with fluoroscopic guidance. Risks were discussed including but not limited to: Bleeding, infection, possibility of epidural hematoma and subsequent neurological compromise, dural puncture, headaches, spinal cord and/or nerve damage, side effects of steroid medication, and poor results regarding pain control. Patient understands and wished to proceed. She will return to clinic in approximate 2 weeks for follow-up, was counseled as to return appointment, activity level, and side effects to be aware of. Medication Injected: Med Injected: Procedure is lumbar epidural steroid injection under local anesthetic using sterile prep and drape at the L5-S1 level using C-arm fluoroscopic guidance in both AP and lateral views medications injected is 120 mg Depo-Medrol +10mL preservative-free normal saline and 2 mL contrast- condition at discharge is stable patient tolerated procedure well had no complications. Condition at Discharge: Condition at Discharge: Condition at discharge stable, patient tolerated procedure well and had no complications. DAVE SCHROEDER MD April 02, 2021 14:46
--- NOTE | 2021-04-02 14:47 | PDOC4 ---
PROCEDURE Procedure Patient was consented for lumbar epidural steroid injection. Risks were dis cussed including but not limited to: Bleeding, infection, possibility of epidural hematoma and subsequent neurological compromise, dural puncture, headaches, spinal cord and/or nerve damage, side effects of steroid medication, and poor results regarding pain control. Patient understands and wished to proceed. Procedure is lumbar epidural steroid injection under local anesthetic using sterile prep and drape at the L5-S1 level using C-arm fluoroscopic guidance in both AP and lateral views medications injected is 120 mg Depo-Medrol +10mL preservative-free normal saline and 2 mL contrast- condition at discharge is stable patient tolerated procedure well had no complications. DAVE SCHROEDER MD April 02, 2021 14:46
== END | disposition home or self-care (01) ==
LOC: PNCL 14:00
PROVIDERS: ATTEND Anesthesiology
DX: M51.16 Intervertebral disc disorders with radiculopathy, lumbar region (principal); M48.061 Spinal stenosis, lumbar region without neurogenic claudication; M96.1 Postlaminectomy syndrome, not elsewhere classified; Z79.82 Long term (current) use of aspirin; Z79.899 Other long term (current) drug therapy; Z88.8 Allergy status to other drugs, medicaments and biological substances
CPT/HCPCS: 62323; J1030; J1040; Q9965

== ENCOUNTER → 2021-05-21 | Outpatient (CLI) | payer MEDICARE ==
[~2021-05-21] MED LIST changes: +BUPIVACAINE MPF 0.25% 10 ML VIAL. ONE; +GLUC1CAP PO; -GLUC1CAP66 PO
--- NOTE | 2021-05-21 11:56 | PDOC ---
Progress Note - Pain Clinic Date of Service: DOS: DATE: 05/21/21 TIME: 11:50 Diagnosis: Dx: Lumbar degenerative disease lumbar spinal stenosis lumbar postlaminectomy syndrome and lumbar spondylosis Myofascial pain Greater trochanteric bursitis, bilateral History or Present Illness: HPI: 89-year-old female returns for follow-up status post lumbar epidural steroid injections x3 patient reports that her legs are doing much better without any significant radiation now into the lower extremities still some significant back pain with rotation and extension but the leg is doing much better.. Chief complaint today however is bilateral hip pain with the greater trochanters patient reports has been getting worse with walking standing changing position especially raising her legs up or trying to cross her legs when she is sitting patient reports it is worse on the left than the right but present bilaterally v gonzalo significant with radiation to the lateral thigh as well. Patient reports is a 9 on scale 10 is worse over the past week 5 on average 3 at its least and is a 5 today. Patient reports is aching and dull cramping severe at times on and off in intensity again worse with activity sitting or crossing her legs when sitting. Patient reports is better with laying down and generally does not awaken her from sleep at night. Patient reports no new motor or sensory deficits or other complaints. Physical Exam: VS: Blood pressure is 143/74 pulse 98 respirations 18 temperature 98.9 F height is 5 feet 5 inches weight is 200 pounds. PE: PHYSICAL EXAMINATION: GENERAL: The patient is awake, alert, oriented, appropriate, very pleasant in demeanor HEENT: Shows normocephalic, atraumatic. Extraocular movements are intact and symmetrical. NECK: Shows anterior throat supple without palpable lymphadenopathy noted. Swallow reflex symmetrical. CHEST: Shows normal on inspection. Breath sounds are clear bilaterally, no rales or rhonchi. HEART: Shows S1, S2 clear. No murmurs auscultated. ABDOMEN: Soft, nontender, nondistended, obese. BACK: Shows spine grossly in the midline. Normal-appearing cervical lordotic curvature. There is slightly increased thoracic kyphosis, some minor flattening of the lumbar lordotic curvature. Lumbar paraspinous muscles show symmetrical on inspection, on palpation shows some moderate tenderness diffusely throughout the upper, middle and lower distribution of the paraspinous muscles without specific trigger points, without radiation of pain. The patient has good rotati onal motion of the lumbar spine, both laterally as well as extension and flexion with moderate tenderness with extension as well as right and left lateral rotation but not with forward flexion. No tenderness over the spinous processes, sacrum or sacroiliac regions. EXTREMITIES: Lower extremities show deep tendon reflexes 1+ in the patellar and tendo calcaneus tendons. Motor exam is 5 on a scale of 5 with right dorsiflexion, extension, quadriceps and hamstring flexion and 5/5 on the left. Peripheral pulses are 1+ posterior tibial. No peripheral edema is noted bilaterally. Lower extremities are warm and dry to touch, equal in color and appearance. Patient's hips show significant tenderness over the greater trochanters with palpation slightly worse on the left than the right with some mild radiation to the lateral thigh bilaterally. SKIN: Shows warm and dry, good turgor. No edema. No sores, rashes or bruising throughout. Procedure: Procedure: Options were discussed with the patient. Patient chart reviews her current medication regimen updated current review of systems updated today as well. We will proceed with bilateral greater trochanteric bursa injections today with fluoroscopic guidance. Risks were discussed including but not limited to bleeding infection possibility of intravascular injection sequelae spread local anesthetic numbness side effects steroid medication exposure fluoroscopy and portals regarding pain control. Patient understands wished to proceed. Patient return to the clinic in approximate 2 weeks for follow-up, was counseled as to return appointment active level and side effects to be aware of. Medication Injected: Med Injected: Under sterile prep and drape patient in supine position using C-arm fluoroscopic guidance patient's bilateral greater trochanters were visualized. Using 25- gauge needle and 1% lidocaine area lateral to the greater trochanters were anesthetized. Using a 25-gauge needle under direct fluoroscopic visualization the greater trochanteric bursa was contacted with negative aspiration noted. 1.5 cc of contrast was then injected with good local spread at the greater trochanteric bursa without washout bilaterally. At this time, a solution containing 3 cc of 0.25% bupivacaine and 60 mg Depo-Medrol was then injected into each greater trochanteric bursa, for a total of 120 mg Depo-Medrol and 6 cc 0.25% bupivacaine. Patient tolerated the procedure well and had no complications. Condition at Discharge: Condition at Discharge: Condition at discharge stable, patient already procedure well and had no com plications. DAVE SCHROEDER MD May 21, 2021 11:56
--- NOTE | 2021-05-21 11:57 | PDOC4 ---
Procedure Note: Procedure Note: Patient was consented for bilateral greater trochanteric bursa injections with fluoroscopic guidance. Risk were discussed including but not limited to bleeding infection possibility of intravascular injection and sequelae spread of local anesthetic numbness side effects steroid medication exposure to fluoroscopy and portals regarding pain control. Patient understands and wished to proceed. Under sterile prep and drape patient in supine position using C-arm fluoroscopic guidance patient's bilateral greater trochanters were visualized. Using 25- gauge needle and 1% lidocaine area lateral to the greater trochanters were anesthetized. Using a 25-gauge needle under direct fluoroscopic visualization the greater trochanteric bursa was contacted with negative aspiration noted. 1.5 cc of contrast was then injected with good local spread at the greater trochanteric bursa without washout bilaterally. At this time, a solution containing 3 cc of 0.25% bupivacaine and 60 mg Depo-Medrol was then injected into each greater trochanteric bursa, for a total of 120 mg Depo-Medrol and 6 cc 0.25% bupivacaine. Patient tolerated the procedure well and had no complications. DAVE SCHROEDER MD May 21, 2021 11:56
== END | disposition home or self-care (01) ==
LOC: PNCL 09:43
PROVIDERS: ATTEND Anesthesiology
DX: M70.62 Trochanteric bursitis, left hip (principal); M70.61 Trochanteric bursitis, right hip; M79.18 Myalgia, other site; M96.1 Postlaminectomy syndrome, not elsewhere classified; M48.061 Spinal stenosis, lumbar region without neurogenic claudication; M47.816 Spondylosis without myelopathy or radiculopathy, lumbar region; M51.36 Other intervertebral disc degeneration, lumbar region; Z79.899 Other long term (current) drug therapy; Z88.8 Allergy status to other drugs, medicaments and biological substances
CPT/HCPCS: 20610; 77002; J1030; J1040; J3490; Q9965

== ENCOUNTER → 2021-06-04 | Outpatient (CLI) | payer MEDICARE ==
--- NOTE | 2021-06-04 11:25 | PDOC ---
Progress Note - Pain Clinic Date of Service: DOS: DATE: 06/04/21 TIME: 11:22 Diagnosis: Dx: Lumbar radiculopathy with lumbar degenerative disc disease lumbar spinal stenosis and lumbar postlaminectomy syndrome Lumbar and lumbosacral spondylosis Myofascial pain Greater trochanteric bursitis bilateral History or Present Illness: HPI: 89-year-old female returns for follow-up status post greater trochanteric bursa injection of the bilateral hips. Patient reports only minimal decrease in pain she did much better after lumbar epidural steroid injections which was earlier this year but now the pain is changed and is just in the low back itself without radiation to the lower extremities currently patient reports some radiation to the upper back and mid back but mostly in the low back which is worse with standing walking changing positions also prolonged standing prolonged sitting and wakes her from sleep about every 5-6 hours patient rates it an 8 on scale 10 is worse over the past week 5 on average to its least is a 5 today patient describes as aching and sharp cramping stabbing but not into the lower extremities. Worse with rotational motion worse with bending and stooping extension of the lumbar spine. Patient reports no bowel or bladder incontinence Physical Exam: VS: Blood pressure is 135/61 pulse 84 respirations 18 temperature 98.4 F height 5 feet 5 inches weight is 202 pounds. PE: PHYSICAL EXAMINATION: GENERAL: The patient is awake, alert, oriented, appropriate, very pleasant in demeanor HEENT: Shows normocephalic, atraumatic. Extraocular movements are intact and symmetrical. Oral cavity: Mucous membranes moist and pink. NECK: Shows anterior throat supple without palpable lymphadenopathy noted. Swallow reflex symmetrical. CHEST: Shows normal on inspection. Breath sounds are clear bilaterally, distant but no rales or rhonchi. HEART: Shows S1, S2 clear. No murmurs auscultated. ABDOMEN: Soft, nontender, nondistended, obese. No palpable organomegaly is noted. BACK: Shows spine grossly in the midline. Normal-appearing cervical lordotic curvature. There is slightly increased thoracic kyphosis, some minor flattening of the lumbar lordotic curvature. Lumbar paraspinous muscles show symmetrical on inspection, on palpation shows some moderate tenderness diffusely throughout the upper, middle and lower distribution of the paraspinous muscles without specific trigger points, without radiation of pain. The patient has good rotational motion of the lumbar spine, both laterally as well as extension and flexion with significant tenderness with extension of the lumbar spine and axial loading the low back also right and left lateral rotation more to the right than the left but present bilaterally with greater than 10 degrees rotation forward flexion 45 degrees is performed without significant pain reported. No tenderness over the spinous processes, sacrum or sacroiliac regions. EXTREMITIES: Lower extremities show deep tendon reflexes 1+ in the patellar and tendo calcaneus tendons. Motor exam is 5 on a scale of 5 with right dorsiflexion, extension, quadriceps and hamstring flexion and 5/5 on the left. Peripheral pulses are 1+ posterior tibial. No peripheral edema is noted bilaterally. Lower extremities are warm and dry to touch, equal in color and appearance. SKIN: Shows warm and dry, good turgor. No edema. No sores, rashes or bruising throughout. Procedure: Procedure: Options were discussed with the patient. Patient chart was reviewed as her current medication regimen updated current review of systems updated today as well. We will proceed with bilateral L4-5 and L5-S1 facet medial branch blocks today with fluoroscopic guidance. Risks were discussed including but not limited to: Bleeding, infection, possibility of epidural hematoma and subsequent neurological compromise, dural puncture, headaches, spinal cord and/or nerve damage, side effects of steroid medication, and poor results regarding pain control. Patient understands and wished to proceed. Patient will return to clinic in approximately 2 weeks for follow-up, was counseled as to return appointment activity level and side effects to be aware of. Medication Injected: Med Injected: Under sterile prep and drape using C-arm fluoroscopic guidance AP and lateral and oblique views, bilateral L4-5 and L5-S1 facet joint MB's injections were performed, using quinke needles with stylette's x4,, medications injected: 120 mg Depo-Medrol +4 cc 0.25% bupivacaine +2 cc contrast. Condition at discharge stable patient tolerated the procedure well and no complications. Condition at Discharge: Condition at Discharge: Condition at discharge stable, patient already procedure well and had no complications. DAVE SCHROEDER MD Jun 04, 2021 11:25
--- NOTE | 2021-06-04 11:26 | PDOC4 ---
Procedure Note: ICD 10 Code: ICD 10 Code: M 47.816 M 47.817 M 48.07 Procedure Note: Patient was consented for bilateral L4-5 and L5-S1 medial branch facet blocks with fluoroscopic guidance. Risks were discussed including but not limited to: Bleeding, infection, possibility of epidural hematoma and subsequent neurolo gical compromise, dural puncture, headaches, spinal cord and/or nerve damage, side effects of steroid medication, and poor results regarding pain control. Patient understands and wished to proceed. Under sterile prep and drape using C-arm fluoroscopic guidance AP and lateral and oblique views, bilateral L4-5 and L5-S1 facet joint MB's injections were performed, using quinke needles with stylette's x4,, medications injected: 120 mg Depo-Medrol +4 cc 0.25% bupivacaine +2 cc contrast. Condition at discharge stable patient tolerated the procedure well and no complications. DAVE SCHROEDER MD Jun 04, 2021 11:26
== END ==
LOC: PNCL 09:49
PROVIDERS: ATTEND Anesthesiology
DX: M48.07 Spinal stenosis, lumbosacral region (principal); M47.817 Spondylosis without myelopathy or radiculopathy, lumbosacral region; M51.17 Intervertebral disc disorders with radiculopathy, lumbosacral region; M96.1 Postlaminectomy syndrome, not elsewhere classified
CPT/HCPCS: 64493; 64494; J1030; J1040; J3490; Q9965

== ENCOUNTER → 2021-06-18 | Outpatient (CLI) | payer MEDICARE ==
--- NOTE | 2021-06-18 11:09 | PDOC4 ---
Procedure Note: ICD 10 Code: ICD 10 Code: M 47.816 M 47.817 Procedure Note: Patient was consented for bilateral L4-5 and L5-S1 medial branch facet blocks with fluoroscopic guidance. Risks were discussed including but not limited to: Bleeding, infection, possibility of epidural hematoma and subsequent neurological compromise, dural puncture, headaches, spinal cord and/or nerve damage, side effects of steroid medication, and poor results regarding pain control. Patient understands and wished to proceed. Under sterile prep and drape using C-arm fluoroscopic guidance AP and lateral and oblique views, bilateral L4-5 and L5-S1 facet joint MB's injections were performed, using quinke needles with stylette's x4,, medications injected: 120 mg Depo-Medrol +4 cc 0.25% bupivacaine +2 cc contrast. Condition at discharge stable patient tolerated the procedure well and no complications. DAVE SCHROEDER MD Jun 18, 2021 11:09
--- NOTE | 2021-06-18 11:09 | PDOC ---
Progress Note - Pain Clinic Date of Service: DOS: DATE: 06/18/21 TIME: 11:05 Diagnosis: Dx: Lumbar degenerative disc disease with lumbar radiculopathy and lumbar spinal stenosis Lumbar and lumbosacral spondylosis Myofascial pain Greater trochanteric bursitis, bilateral History or Present Illness: HPI: 89-year-old female returns for follow-up status post bilateral L4-5 and L5-S1 facet medial branch blocks. Patient reports about 90% improvement initially with the overall still about 40% improved has been lasting for about 2 weeks patient reports the pain is still there in the low back but is much better than when she did increase her activity greater comfort doing greater distance walking doing household activities travel with greater ease sleeping better at night patient reports occasionally it will wake her from sleep at night but only about once or twice a week patient reports pain is an 8 on scale 10 is worse over the past week 5 on average to its least is a 5 today patient report is aching and dull across the low back not radiating to the lower extremities at this time but just in the low back worse with standing worse with sitting for prolonged periods and changing positions. Patient reports no new bowel or bladder incontinence or motor loss. Physical Exam: VS: Blood pressure is 154/67 pulse 88 respirations 18 temperature Fahrenheit height 5 feet 5 inches weight is 197 pounds PE: PHYSICAL EXAMINATION: GENERAL: The patient is awake, alert, oriented, appropriate, very pleasant in demeanor, patient accompanied by her daughter. HEENT: Shows normocephalic, atraumatic. Extraocular movements are intact and symmetrical. Oral cavity: Mucous membranes moist and pink. NECK: Shows anterior throat supple without palpable lymphadenopathy noted. Swallow reflex symmetrical. CHEST: Shows normal on inspection. Breath sounds are clear bilaterally, distant but no rales or rhonchi. HEART: Shows S1, S2 clear. No murmurs auscultated. ABDOMEN: Soft, nontender, nondistended, obese. No palpable organomegaly is noted. BACK: Shows spine grossly in the midline. Normal-appearing cervical lordotic curvature. There is slightly increased thoracic kyphosis, some minor flattening of the lumbar lordotic curvature. Lumbar paraspinous muscles show symmetrical on inspection, on palpation shows some moderate tenderness diffusely throughout the upper, middle and lower distribution of the paraspinous muscles without specific trigger points, without radiation of pain. The patient has good rotational motion of the lumbar spine, both laterally as well as extension and flexion with moderate tenderness with right and left lateral rotation greater than 10 degrees with significant tenderness with extension lumbar spine and axial loading low back better with forward flexion 45 degrees was performed without significant difficulty. EXTREMITIES: Lower extremities show deep tendon reflexes 1 in the patellar and tendo calcaneus tendons. Motor exam is 5 on a scale of 5 with right dorsiflexion, extension, quadriceps and hamstring flexion and 5/5 on the left. Peripheral pulses are 1+ posterior tibial. No peripheral edema is noted bilaterally. Lower extremities are warm and dry to touch, equal in color and appearance. SKIN: Shows warm and dry, good turgor. No edema. No sores, rashes or bruising throughout. Procedure: Procedure: Options were discussed with the patient patient daughter who accompanied her visit today. We will proceed with bilateral L4-5 and L5-S1 medial branch facet blocks today with fluoroscopic guidance. Risks were discussed including but not limited to: Bleeding, infection, possibility of epidural hematoma and subsequent neurological compromise, dural puncture, headaches, spinal cord and/or nerve damage, side effects of steroid medication, and poor results regarding pain control. Patient understands and wished to proceed. Patient return to the clinic in approximate 2 weeks for follow-up, was counseled as to return appointment activity level and side effects to be aware of. We discussed possibility of radiofrequency ablation if patient has significant improvement as she did with the first injections as well and she is interested in pursuing this. We will have her contact the office in approximately 2 weeks for update at that time and potential scheduling for radiofrequency ablation. Medication Injected: Med Injected: Under sterile prep and drape using C-arm fluoroscopic guidance AP and lateral and oblique views, bilateral L4-5 and L5-S1 facet joint MB's injections were performed, using quinke needles with stylette's x4,, medications injected: 120 mg Depo-Medrol +4 cc 0.25% bupivacaine +2 cc contrast. Condition at discharge stable patient tolerated the procedure well and no complications. Condition at Discharge: Condition at Discharge: Condition at discharge stable, patient alert the procedure well and had no complications. DAVE SCHROEDER MD Jun 18, 2021 11:09
== END ==
LOC: PNCL 10:05
PROVIDERS: ATTEND Anesthesiology
DX: M51.17 Intervertebral disc disorders with radiculopathy, lumbosacral region (principal); M48.061 Spinal stenosis, lumbar region without neurogenic claudication; M47.817 Spondylosis without myelopathy or radiculopathy, lumbosacral region
CPT/HCPCS: 64493; 64494; J1030; J1040; J3490; Q9965

== ENCOUNTER → 2021-07-22 | Outpatient (CLI) | payer MEDICARE ==
[~2021-07-22] MED LIST changes: -IOHEXOL 180 MG/ML 10 ML VIAL. ONE; +LIDOCAINE 2% PF 5 ML VIAL. ONE; -methylPREDNISolone ACETATE 40 MG/ML VIAL. ONE
--- NOTE | 2021-07-22 16:11 | PDOC ---
Progress Note - Pain Clinic Date of Service: DOS: DATE: 07/22/21 TIME: 16:07 Diagnosis: Dx: Lumbar degenerative disease lumbar spinal stenosis lumbar postlaminectomy syndrome and lumbar and lumbosacral spondylosis Greater trochanteric bursitis bilateral Myofascial pain History or Present Illness: HPI: 89-year-old female returns for follow-up status post bilateral lumbar facet medial branch blocks x2 each with about 80 to 90% improvement over the next to 3 to 4 weeks following the injections patient did very well after the last set and we decided to proceed with lumbar medial branch radiofrequency ablation and patient returns for that reporting still significant pain across the low back but not radiating to the lower extremities patient reports is a 9 on scale 10 is worse over the past week 5 on average 3 its least is a 5 today patient reports aching can be sharp and shooting across the back stabbing in the back severe on and off in intensity worse with standing extension the lumbar spine prolonged sitting wakes her from sleep fairly frequently. Patient reports no bowel or bladder incontinence no new motor or sensory deficits but significant fatigabi lity in the lower extremities when the pain is at its worst. Physical Exam: VS: Blood pressure is 140/61 pulse 87 respirations 18 temperature is 98.5 F height is 5 foot 4 inches weight is 197 pounds PE: PHYSICAL EXAMINATION: GENERAL: The patient is awake, alert, oriented, appropriate, very pleasant in demeanor, patient accompanied by her son. HEENT: Shows normocephalic, atraumatic. Extraocular movements are intact and symmetrical. Oral cavity: Mucous membranes moist and pink. NECK: Shows anterior throat supple without palpable lymphadenopathy noted. Swallow reflex symmetrical. CHEST: Shows normal on inspection. Breath sounds are clear bilaterally, distant but no rales or rhonchi auscultated bilaterally. HEART: Shows S1, S2 clear. No murmurs auscultated. ABDOMEN: Soft, nontender, nondistended, obese. No palpable organomegaly is noted. No rebound or guarding demonstrated. BACK: Shows spine grossly in the midline. Normal-appearing cervical lordotic curvature. There is slightly increased thoracic kyphosis, some minor flattening of the lumbar lordotic curvature. Lumbar paraspinous muscles show symmetrical on inspection, on palpation shows some moderate tenderness diffusely throughout the upper, middle and lower distribution of the paraspinous muscles, but without specific trigger points, without radiation of pain. The patient has good rotational motion of the lumbar spine, both laterally as well as extension and flexion with significant pain with extension and axial loading lumbar spine both right and left as well as right and left lateral rotation greater than 10 degrees with significant pain reported bilaterally again without radiation. Forward flexion at 45 degrees is performed without difficulty. EXTREMITIES: Lower extremities show deep tendon reflexes 1 in the patellar and tendo calcaneus tendons. Motor exam is 5 on a scale of 5 with right dorsiflexion, extension, quadriceps and hamstring flexion and 5/5 on the left. Peripheral pulses are 1 posterior tibial. No peripheral edema is noted bilaterally. Lower extremities are warm and dry to touch, equal in color and appearance. SKIN: Shows warm and dry, good turgor. No edema. No sores, rashes or bruising throughout. Procedure: Procedure: Options discussed with the patient. Patient's old chart was reviewed as her current medication regimen updated current review of systems updated today as well. We will proceed with bilateral radiofrequency ablation medial branch facets at L4-5 and L5-S1 with fluoroscopic guidance. Risks were discussed including but not limited to: Bleeding, infection, possibility of epidural hematoma and subsequent neurological compromise, dural puncture, headaches, spinal cord and/or nerve damage, side effects of steroid medication, potential thermal damage to the surrounding tissues as well as motor nerves and permanent ischemic damage, and poor results regarding pain control. Patient understands and wished to proceed. Patient return to the clinic in approximately 4 weeks for follow-up, was counseled as to return appointment, activity level, and side effect to be aware of. Medication Injected: Med Injected: Under sterile prep and drape patient in prone position using C-arm fluoroscopic guidance patient's lumbar spine was visualized in both AP oblique and lateral views using 1% lidocaine to topically anesthetize the areas overlying the L3-4, L4-5 and L5-S1 facet joints at the point of the medial branches. Using a 22- gauge insulated radiofrequency needle with curved tips and stylette, the needles were advanced to contact the region of the facet with the medial branch targets. This was repeated at the L3-4 L4-5 and L5-S1 levels. Stylette was removed and using radiofrequency probe inserted into each needle individually at each level and then motor tested with no motor stimulation of the lower extremity. Patient did have some multifidus musculature contraction in the lumbar spine only but without radiation. At this time 1 cc of 2% lidocaine was then injected in each needle after motor testing but prior to radiofrequency ablation. Needle position was confirmed continuously throughout the radiofrequency ablation with both AP oblique and lateral views at each level. At this time radiofrequency ablation was carried out each level for 60 seconds at 80 C x 2 at each level with the tip of the needle turned 90 degrees after the first 60 seconds and then subsequent 60 seconds of radiofrequency ablation. Once radiofrequency ablation was completed solution containing 0.25% bupivacaine 1 cc and 20 mg Depo-Medrol was injected each level. Needle was then withdrawn. The procedure was repeated for the contralateral side as described as well. Patient had no paresthesias throughout the procedure no radiation of pain into the lower extremities no lower extremity motor response with motor testing bilaterally. Please see radiofrequency flowsheet for levels, temperatures, impedance, etc. Condition at Discharge: Condition at Discharge: Condition at discharge is stable, patient tolerated the procedure well and had no complications. DAVE SCHROEDER MD Jul 22, 2021 16:11
== END ==
LOC: PNCL 13:44
PROVIDERS: ATTEND Anesthesiology
DX: M48.061 Spinal stenosis, lumbar region without neurogenic claudication (principal); M47.817 Spondylosis without myelopathy or radiculopathy, lumbosacral region; M96.1 Postlaminectomy syndrome, not elsewhere classified; M51.36 Other intervertebral disc degeneration, lumbar region
CPT/HCPCS: 64635; 64636; J1040; J3490

== ENCOUNTER → 2021-09-01 | Outpatient (CLI) | payer MEDICARE ==
[~2021-09-01] MED LIST changes: -BUPIVACAINE MPF 0.25% 10 ML VIAL. ONE; -LIDOCAINE 2% PF 5 ML VIAL. ONE; -methylPREDNISolone ACETATE 80 MG/ML VIAL. ONE
--- NOTE | 2021-09-01 14:54 | PDOC ---
Progress Note - Pain Clinic Date of Service: DOS: DATE: 09/01/21 TIME: 14:50 Diagnosis: Dx: Lumbar degenerative disease lumbar spinal stenosis and lumbar and lumbosacral spondylosis Myofascial pain Greater trochanteric bursitis bilateral History or Present Illness: HPI: 89-year-old female returns for follow-up status post RF ablation bilateral L4-5 and L5-S1 medial branches with very good results about 60% improvement overall patient reports her pain in her back is doing much better but she has some pain in the legs which she describes as "myofascial" with stiffness and achy pain in the calves primarily patient starts physical therapy tomorrow and and was following up after her ablation ever again reporting that her back is doing quite a bit better patient reports he still has some pain in the legs there is aching and shooting and cramping but this is very separate from the pain in her back which she did not have at the time of the ablation patient reports her pain in her legs is a 9 on scale 10 is worse over the past week 6 on average 3 at its least is a 3 today patient reports worse with walking standing changing positions objects not awaken her from sleep at night. Patient reports her back however is doing much better she is increased her activity with greater ease and comfort doing further distance walking as well as doing activities at home and travel with greater ease and comfort as well. Patient reports no new bowel or bladder incontinence. Physical Exam: VS: Blood pressure is 152/73 pulse 78 respirations 18 temperature 97.6 2 Fahrenheit height is 5 feet 4 inches weight is 195 pounds PE: PHYSICAL EXAMINATION: GENERAL: The patient is awake, alert, oriented, appropriate, very pleasant demeanor HEENT: Shows normocephalic, atraumatic. Extraocular movements are intact and symmetrical. Patient wearing eyeglasses. Oral cavity: Mucous membranes moist and pink. NECK: Shows anterior throat supple without palpable lymphadenopathy noted. Swallow reflex symmetrical. CHEST: Shows normal on inspection. Breath sounds are clear bilaterally, distant but no rales or rhonchi. HEART: Shows S1, S2 clear. No murmurs auscultated. ABDOMEN: Soft, nontender, nondistended, obese. No palpable organomegaly is noted. BACK: Shows spine grossly in the midline. Normal-appearing cervical lordotic curvature. There is slightly increased thoracic kyphosis, some minor flattening of the lumbar lordotic curvature. Lumbar paraspinous muscles show symmetrical on inspection, on palpation shows some moderate tenderness diffusely throughout the upper, middle and lower distribution of the paraspinous muscles, but without specific trigger points, without radiation of pain. The patient has good rotational motion of the lumbar spine, both laterally as well as extension and flexion with only mild tenderness with extension at 10 degrees and very minimal tenderness with right and left lateral rotation no tenderness with forward flexion. EXTREMITIES: Lower extremities show deep tendon reflexes 1+ in the patellar and tendo calcaneus tendons. Motor exam is 5 on a scale of 5 with right dorsiflexion, extension, quadriceps and hamstring flexion and 5/5 on the left. Peripheral pulses are 1+ posterior tibial. No peripheral edema is noted bilaterally. Lower extremities are warm and dry to touch, equal in color and appearance. SKIN: Shows warm and dry, good turgor. No edema. No sores, rashes or bruising throughout. Procedure: Procedure: Options were discussed with patient. Patient chart reviews her current medication regimen updated current review of systems updated today as well. We will have patient proceed with physical therapy starting tomorrow and if not significantly improved will have her return after therapy is completed. Patient will continue with stretching strength exercises at home on her own in addition to the therapy as well. Medication Injected: Med Injected: None Condition at Discharge: Condition at Discharge: Condition at discharge is stable. DAVE SCHROEDER MD Sep 01, 2021 14:54
== END | disposition home or self-care (01) ==
LOC: PNCL 13:54
PROVIDERS: ATTEND Anesthesiology
DX: M51.36 Other intervertebral disc degeneration, lumbar region (principal); M47.896 Other spondylosis, lumbar region; M47.897 Other spondylosis, lumbosacral region; M79.18 Myalgia, other site; M70.62 Trochanteric bursitis, left hip; M70.61 Trochanteric bursitis, right hip; Z98.890 Other specified postprocedural states
CPT/HCPCS: 99212; G0463

== ENCOUNTER → 2021-09-23 | Outpatient (CLI) | payer MEDICARE ==
[~2021-09-23] MED LIST changes: +IOHEXOL 180 MG/ML 10 ML VIAL. ONE; +methylPREDNISolone ACETATE 40 MG/ML VIAL. ONE; +methylPREDNISolone ACETATE 80 MG/ML VIAL. ONE
--- NOTE | 2021-09-23 10:25 | PDOC ---
Progress Note - Pain Clinic Date of Service: DOS: DATE: 09/23/21 TIME: : Diagnosis: Dx: Lumbar radiculopathy with lumbar degenerative disease lumbar spinal stenosis and lumbar spondylosis Myofascial pain Greater trochanteric bursitis History or Present Illness: HPI: 89-year-old female returns for follow-up status post lumbar facet medial branch blocks and radiofrequency ablation with about 60% improvement in the low back pain patient reports her pain today is "different" and has pain in the low back and the bilateral lower extremities right and left rating the posterior gluteus posterior lateral thigh lateral anterior thigh anteromedial thigh medial lower leg posterior lower leg into the ankles bilaterally and into the feet patient reports mostly in the ankle not into the toes but in the top of the foot bilaterally worse with walking standing change positions patient reports pain is burning and stabbing in the low back and the legs shooting and cramping and aching in the legs himself patient reports on and off much worse with standing walking better with sitting or laying down generally wakes her from sleep about once every 3 hours. Patient reports this is come on about the last 2-2 and half weeks or so rates her pain is a 9 on scale 10 is worse over the past week 6 on average for its least is a 6 today. Patient reports much better with sitting down or laying down but again waking her from sleep. Patient reports also exposed to significant fatigability of the bilateral lower extremities with ambulation standing and walking. Patient is using a walker to ambulate. Patient reports no bowel or bladder incontinence. Physical Exam: VS: Blood pressure is 159/79 pulse 87 respirations 18 temperature 98.2 F height 5 feet 4 inches weight is 199 pounds PE: PHYSICAL EXAMINATION: GENERAL: The patient is awake, alert, oriented, appropriate, very pleasant in demeanor HEENT: Shows normocephalic, atraumatic. Extraocular movements are intact and symmetrical. Oral cavity: Mucous membranes moist and pink. NECK: Shows anterior throat supple without palpable lymphadenopathy noted. Swallow reflex symmetrical. CHEST: Shows normal on inspection. Breath sounds are clear bilaterally, no rales or rhonchi. HEART: Shows S1, S2 clear. No murmurs auscultated. ABDOMEN: Soft, nontender, nondistended, obese. No palpable organomegaly is noted. BACK: Shows spine grossly in the midline. Normal-appearing cervical lordotic curvature. There is increased thoracic kyphosis, some flattening of the lumbar lordotic curvature, with well-healed midline surgical scarring. Lumbar paraspinous muscles show symmetrical on inspection, on palpation shows some moderate tenderness diffusely throughout the upper, middle and lower distribution of the paraspinous muscles without specific trigger points, without radiation of pain. The patient has good rotational motion of the lumbar spine, both laterally as well as extension and flexion without significant difficulty. No tenderness over the spinous processes, sacrum or sacroiliac regions. EXTREMITIES: Lower extremities show deep tendon reflexes 1+ in the patellar and tendo calcaneus tendons. Motor exam is 5 on a scale of 5 with right dorsiflexion, extension, quadriceps and hamstring flexion and 5/5 on the left. Peripheral pulses are 1+ = posterior tibial. No peripheral edema is noted bilaterally. Lower extremities are warm and dry to touch, equal in color and appearance. SKIN: Shows warm and dry, good turgor. No edema. No sores, rashes or bruising throughout. Procedure: Procedure: Options discussed with the patient. Patient chart reviews her current med ication regimen updated current review of systems updated today as well. We will proceed with a lumbar epidural steroid injection today with fluoroscopic guidance risks were discussed including but not limited to: Bleeding, infection, possibility of epidural hematoma and subsequent neurological compromise, dural puncture, headaches, spinal cord and/or nerve damage, side effects of steroid medication, and poor results regarding pain control. Patient understands and wished to proceed. Patient will return to the clinic in approximate 2 weeks for follow-up, was counseled return appointment, activity, and side effects to be aware of. Medication Injected: Med Injected: Procedure is lumbar epidural steroid injection under local anesthetic using sterile prep and drape at the L5-S1 level using C-arm fluoroscopic guidance in both AP and lateral views medications injected is 120 mg Depo-Medrol +10mL preservative-free normal saline and 2 mL contrast- condition at discharge is stable patient tolerated procedure well had no complications. Condition at Discharge: Condition at Discharge: Condition at discharge stable, patient tolerated the procedure well and had no complications. DAVE SCHROEDER MD Sep 23, 2021 10:25
--- NOTE | 2021-09-23 10:25 | PDOC4 ---
Procedure Note: ICD 10 Code: ICD 10 Code: M54.16 M54.17 M4 8.07 M51.87 Procedure Note: Patient was consented for lumbar epidural steroid injection with fluoroscopic guidance. Risks were discussed including but not limited to: Bleeding, infection, possibility of epidural hematoma and subsequent neurological compromise, dural puncture, headaches, spinal cord and/or nerve damage, side effects of steroid medication, and poor results regarding pain control. Patient understands and wished to proceed. Procedure is lumbar epidural steroid injection under local anesthetic using sterile prep and drape at the L5-S1 level using C-arm fluoroscopic guidance in both AP and lateral views medications injected is 120 mg Depo-Medrol +10mL preservative-free normal saline and 2 mL contrast- condition at discharge is stable patient tolerated procedure well had no complications. DAVE SCHROEDER MD Sep 23, 2021 10:25
== END | disposition home or self-care (01) ==
LOC: PNCL 09:31
PROVIDERS: ATTEND Anesthesiology
DX: M51.16 Intervertebral disc disorders with radiculopathy, lumbar region (principal); M48.061 Spinal stenosis, lumbar region without neurogenic claudication; M47.26 Other spondylosis with radiculopathy, lumbar region; M79.18 Myalgia, other site; M70.60 Trochanteric bursitis, unspecified hip; Z79.82 Long term (current) use of aspirin; Z79.899 Other long term (current) drug therapy; Z88.8 Allergy status to other drugs, medicaments and biological substances
CPT/HCPCS: 62323; J1030; J1040; Q9965

== ENCOUNTER → 2021-11-26 | Outpatient (CLI) | payer MEDICARE ==
[~2021-11-26] MED LIST changes: -IOHEXOL 180 MG/ML 10 ML VIAL. ONE; -methylPREDNISolone ACETATE 40 MG/ML VIAL. ONE; -methylPREDNISolone ACETATE 80 MG/ML VIAL. ONE
--- NOTE | 2021-11-26 12:23 | PDOC ---
Progress Note - Pain Clinic Date of Service: DOS: DATE: 11/26/21 TIME: 12:19 Diagnosis: Dx: Lumbar radiculopathy with lumbar degenerative disease and lumbar spinal stenosis lumbar and lumbosacral spondylosis History or Present Illness: HPI: 89-year-old female returns for follow-up status post lumbar epidural steroid injection x1. Patient reports about 50% improvement for the first week or so but the pain began to return and is only about 25% improvement overall and patient reports it is a "minimal improvement" patient reports is a 10 on scale 10 is worse over the past week 6 on average 5 its least is a 6 today. Patient scribes pain is aching in the low back dull and aching and shooting in the left lower extremity in the posterior gluteus posterior lateral thigh patient reports is on and off in intensity worse with walking standing changing positions better with sitting or resting and laying down. Patient reports it does awaken her from sleep about once a night on some nights but not every night. Patient reports no bowel or bladder incontinence. Patient is somewhat frustrated as the pain keeps returning we discussed this in more detail and we will order a new MRI scan of the lumbar spine to better differentiate any changes in almost a year and a half since she has had any diagnostic studies on her lumbar spine. Physical Exam: VS: Blood pressure is 145/77 pulse 90 respirations 18 temperature 97.7 F weight is 201 pounds PE: PHYSICAL EXAMINATION: GENERAL: The patient is awake, alert, oriented, appropriate, very pleasant in demeanor, patient companied by her daughter HEENT: Shows normocephalic, atraumatic. Extraocular movements are intact and symmetrical. Patient wearing eyeglasses. Oral cavity: Mucous membranes moist and pink. NECK: Shows anterior throat supple without palpable lymphadenopathy noted. Swallow reflex symmetrical. CHEST: Shows normal on inspection. Breath sounds are clear bilaterally. HEART: Shows S1, S2 clear. No murmurs auscultated. ABDOMEN: Soft, nontender, nondistended. No palpable organomegaly is noted. No rebound or guarding demonstrated. BACK: Shows spine grossly in the midline. Normal-appearing cervical lordotic curvature. There is moderately increased thoracic kyphosis, some flattening of the lumbar lordotic curvature. Lumbar paraspinous muscles show symmetrical on inspection, on palpation shows some moderate tenderness diffusely throughout the upper, middle and lower distribution of the paraspinous muscles, but without specific trigger points, without radiation of pain. The patient has good rotational motion of the lumbar spine, both laterally as well as extension and flexion with moderate tenderness with extension and axial loading lumbar spine also right left lateral rotation but better with forward flexion. No tenderness over the spinous processes, sacrum or sacroiliac regions. EXTREMITIES: Lower extremities show deep tendon reflexes 1+ in the patellar and tendo calcaneus tendons. Motor exam is 5 on a scale of 5 with right dorsifle xion, extension, quadriceps and hamstring flexion and 5/5 on the left. Peripheral pulses are 1+ posterior tibial. No peripheral edema is noted bilaterally. Lower extremities are warm and dry to touch, equal in color and appearance. SKIN: Shows warm and dry, good turgor. No edema. No sores, rashes or bruising throughout. Procedure: Procedure: Options were discussed with patient. Patient's old chart was reviewed as her current medication regimen updated current review of systems updated today as well. We will proceed with lumbar epidural steroid injections today with fluoroscopic guidance. Risks were discussed including but not limited to: Bleeding, infection, possibility of epidural hematoma and subsequent neurological compromise, dural puncture, headaches, spinal cord and/or nerve damage, side effects of steroid medication, and poor results regarding pain control. Patient understands and wished to proceed. Patient return to clinic in approximately 2 weeks for follow-up, was counseled as return appointment, activity level, and side effects beware. Again, will order new MRI scan lumbar spine to better differentiate any etiology of her persistent low back pain and radiculopathy. Medication Injected: Med Injected: Procedure is lumbar epidural steroid injection under local anesthetic using sterile prep and drape at the L5-S1 level using C-arm fluoroscopic guidance in both AP and lateral views medications injected is 120 mg Depo-Medrol +10mL preservative-free normal saline and 2 mL contrast- condition at discharge is stable patient tolerated procedure well had no complications. Condition at Discharge: Condition at Discharge: Condition at discharge is stable, patient tolerated procedure well and had no complications. DAVE SCHROEDER MD Nov 26, 2021 12:23
--- NOTE | 2021-11-26 12:24 | PDOC4 ---
Procedure Note: ICD 10 Code: ICD 10 Code: M54.17 M51.87 M48.07 Procedure Note: Patient was consented for lumbar epidural steroid injection with fluoroscopic guidance. Risks were discussed including but not limited to: Bleeding, infection, possibility of epidural hematoma and subsequent neurological compromise, dural puncture, headaches, spinal cord and/or nerve damage, side effects of steroid medication, and poor results regarding pain control. Patient understands and wished to proceed. Procedure is lumbar epidural steroid injection under local anesthetic using ster ile prep and drape at the L5-S1 level using C-arm fluoroscopic guidance in both AP and lateral views medications injected is 120 mg Depo-Medrol +10mL preservative-free normal saline and 2 mL contrast- condition at discharge is stable patient tolerated procedure well had no complications. DAVE SCHROEDER MD Nov 26, 2021 12:24
== END | disposition home or self-care (01) ==
LOC: PNCL 11:23
PROVIDERS: ATTEND Anesthesiology
DX: M51.16 Intervertebral disc disorders with radiculopathy, lumbar region (principal); M48.061 Spinal stenosis, lumbar region without neurogenic claudication; M47.26 Other spondylosis with radiculopathy, lumbar region; M47.27 Other spondylosis with radiculopathy, lumbosacral region; Z79.899 Other long term (current) drug therapy; Z88.8 Allergy status to other drugs, medicaments and biological substances
CPT/HCPCS: 62323

== ENCOUNTER → 2021-12-03 | Outpatient (CLI) | payer MEDICARE ==
--- NOTE | 2021-12-03 12:24 | RAD ---
MR LUMBAR SPINE WO [id number] Date: 12/03/2021 10:57 AM Indication: bilateral lumbar radiculopathy Comparison: None. Technique: Multi-planar multi-weighted magnetic resonance imaging of the lumbar spine was performed w ithout intravenous contrast using the standard lumbar spine protocol. FINDINGS: The lumbar spine is normally aligned. No acute fracture. Moderate to severe multilevel degenerative d isc desiccation and disc height loss, with partial osseous fusion across the L5-S1 disc space. Degene rative endplate edema at L2-3. Fatty degenerative endplate changes at all 3 4. The conus terminates at a normal level. No abnormal signal is seen within the visualized distal spina l cord. No clumping of intrathecal nerve roots. No soft tissue abnormality in the visualized abdomen or pelvis. T12-L1: No disc bulge. No facet arthropathy. No significant spinal stenosis or neural foraminal narro wing. L1-L2: Disc bulge. Mild facet arthropathy. Mild spinal stenosis. Mild to moderate bilateral neural fo raminal narrowing. L2-L3: Disc bulge. Moderate facet arthropathy. Ligamentum flavum thickening. Moderate to severe spina l stenosis and right greater than left lateral recess narrowing. Moderate bilateral neural foraminal narrowing. L3-L4: Disc bulge. Moderate facet arthropathy. Ligamentum flavum thickening. Moderate to severe spina l stenosis right greater than left lateral recess narrowing. Mild to moderate bilateral neural forami nal narrowing. L4-L5: Disc bulge. Severe facet arthropathy with edema in the right facet joint. 7 mm synovial cyst p rojecting into the dorsal epidural space. Moderate spinal stenosis. Moderate right and mild left late ral recess narrowing. Mild bilateral neural foraminal narrowing. L5-S1: Disc bulge. Mild facet arthropathy. No significant spinal stenosis or neural foraminal narrowi ng. IMPRESSION: Moderate to severe spinal canal stenosis at L2-3 and L3-4. Degenerative changes at the remaining leve ls as above. Electronically signed by: Flo Hernandez MD (12/03/2021 12:22 PM) [id number]
== END | disposition home or self-care (01) ==
LOC: MRI 10:52
PROVIDERS: ATTEND Anesthesiology
DX: M47.26 Other spondylosis with radiculopathy, lumbar region (principal); M48.061 Spinal stenosis, lumbar region without neurogenic claudication; Z79.82 Long term (current) use of aspirin; Z79.899 Other long term (current) drug therapy; Z88.8 Allergy status to other drugs, medicaments and biological substances
CPT/HCPCS: 72148

== ENCOUNTER → 2021-12-17 | Outpatient (CLI) | payer MEDICARE ==
[~2021-12-17] MED LIST changes: +LIDO700A21 TP; +METH4TAB2 PO; +methylPREDNISolone ACETATE 40 MG/ML VIAL. ONE; +methylPREDNISolone ACETATE 80 MG/ML VIAL. ONE
--- NOTE | 2021-12-17 14:50 | PDOC ---
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 Patient reports the first injection was helpful the second 1 was not and she still has significant pain which is increasing in the left lower extremity posterior gluteus posterior lateral thigh lateral anterior thigh and into the calf on the left side worse with walking standing change positions. Patient reports she is having increased weakness in the left leg when she is walking she feels unstable though she is using her walker and has that with her on her visit today. Patient reports her pain is a 9 on scale 10 is worse over the past week 7 on average 3 to [place] is a 7 today patient scribes aching and sharp in the back dull alternating and radiating shooting in the left lower extremity which is cramping at times on and off in intensity patient reports no bowel or bladder incontinence. Patient did have a new MRI scan which we ordered after her last visit and we discussed that with she and her son today showing moderate to severe spinal canal stenosis at L2-3 and L3-4 also a synovial cyst at the L4-5 level 7 mm projecting into the dorsal epidural space with moderate spinal stenosis. Patient reports no loss of motor function but significant weakness which is progressing in the left leg as well as instability with walking. Physical Exam: VS: Blood pressure is 161/72 pulse 91 respirations 18 temperature 97.9 F height 5 feet 5 inches weight is 202 pounds. PE: PHYSICAL EXAMINATION: GENERAL: The patient is awake, alert, oriented, appropriate, very pleasant in demeanor HEENT: Shows normocephalic, atraumatic. Extraocular movements are intact and symmetrical. Oral cavity: Mucous membranes moist and pink. NECK: Shows anterior throat supple without palpable lymphadenopathy noted. Swallow reflex symmetrical. CHEST: Shows normal on inspection. Breath sounds are clear bilaterally, distant but no rales rhonchi or wheezes auscultated. HEART: Shows S1, S2 clear. No murmurs auscultated. ABDOMEN: Soft, nontender, nondistended. No palpable organomegaly is noted. BACK: Shows spine grossly in the midline. Normal-appearing cervical lordotic curvature. There is moderately increased thoracic kyphosis, some flattening of the lumbar lordotic curvature. Lumbar paraspinous muscles show symmetrical on inspection, on palpation shows some moderate tenderness diffusely throughout the upper, middle and lower distribution of the paraspinous muscles without specific trigger points, without radiation of pain. The patient has good rotational motion of the lumbar spine, both laterally as well as extension and flexion without significant difficulty. No tenderness over the spinous processes, sacrum or sacroiliac regions. EXTREMITIES: Lower extremities show deep tendon reflexes 1+ in the patellar and tendo calcaneus tendons. Motor exam is 5 on a scale of 5 with right dorsiflexion, extension, quadriceps and hamstring flexion and 4/5 on the left. Peripheral pulses are 1+ posterior tibial. No peripheral edema is noted bilaterally. Lower extremities are warm and dry. SKIN: Shows warm and dry, good turgor. No edema. No sores, rashes or bruising throughout. Procedure: Procedure: Options were discussed with patient. Patient chart was reviewed as her current medication regimen updated current review of systems updated today as well. We will hold any further injections at this time as patient is having increased pain and weakness in the left lower extremity without significant improvement after last epidural steroid injection. Options were discussed with she and her son and we will make a referral for neurosurgical evaluation with recent MRI scan as well as medications which will be called in today new medications of Medrol Dosepak also Lidoderm patches. Patient was given instruction as well as side effects beware of each of the medications. Patient will follow-up after neurosurgical consultation which we scheduled later today. Medication Injected: Med Injected: None Condition at Discharge: Condition at Discharge: Condition at discharge is stable. DAVE SCHROEDER MD Dec 17, 2021 14:50
== END | disposition home or self-care (01) ==
LOC: PNCL 13:35
PROVIDERS: ATTEND Anesthesiology
DX: M51.16 Intervertebral disc disorders with radiculopathy, lumbar region (principal); M48.061 Spinal stenosis, lumbar region without neurogenic claudication; M47.27 Other spondylosis with radiculopathy, lumbosacral region; Z79.899 Other long term (current) drug therapy; Z88.8 Allergy status to other drugs, medicaments and biological substances
CPT/HCPCS: 99212; J1030; J1040; G0463

== ENCOUNTER → 2022-02-05 | Outpatient (CLI) | payer MEDICARE ==
[~2022-02-05] MED LIST changes: +AMOX1TAB10 PO; +DEXAMETHASONE PRES.FREE 10 MG/ML VIAL. ONE; +HYDR12.575 PO; +IOHEXOL 180 MG/ML 10 ML VIAL. ONE; -methylPREDNISolone ACETATE 40 MG/ML VIAL. ONE; -methylPREDNISolone ACETATE 80 MG/ML VIAL. ONE
--- NOTE | 2022-02-05 11:33 | PDOC ---
Progress Note - Pain Clinic Date of Service: DOS: DATE: 02/05/22 TIME: 11:29 Diagnosis: Dx: Lumbar radiculopathy with lumbar degenerative disease lumbar spinal stenosis and lumbar spondylosis History or Present Illness: HPI: 89-year-old female returns for follow-up status post evaluation and referral for neurosurgical opinion patient reports she has seen her neurosurgeon who is not recommending any further surgery at this time patient reports still significant pain in the mid back and low back and now radiating more into the left lower extremity with some significant increase in weakness in the left leg patient reports is a 9 on scale 10 is worse over the past week 6 on average 2 to [place] and is different now that it is radiating into the left leg to the calf and into the foot generally but stopping her lower leg but now is also into the foot with some pain and numbness in the lateral toes on the left side. Patient reports no complete loss of motor function with significant fatigability and feels very unstable with the left leg with ambulation patient is using a walker when she ambulates. Describes the pain as cramping and aching shooting radiati ng can be severe and unbearable with walking and standing and "cannot do anything" with her lower extremities patient reports no bowel or bladder incontinence after last injection was about 75% improved but the pain returns over about a 1 month time. Patient reports no bowel or bladder incontinence. Physical Exam: VS: Blood pressure is 146/79 pulse 94 respirations 20 temperature 90.1 F height is 5 foot 4 inches weight is 209 pound PE: PHYSICAL EXAMINATION: GENERAL: The patient is awake, alert, oriented, appropriate, very pleasant in demeanor HEENT: Shows normocephalic, atraumatic. Extraocular movements are intact and symmetrical. Oral cavity: Mucous membranes moist and pink. NECK: Shows anterior throat supple without palpable lymphadenopathy noted. CHEST: Shows normal on inspection. Breath sounds are clear bilaterally. HEART: Shows S1, S2 clear. No murmurs auscultated. ABDOMEN: Soft, nontender, nondistended. No palpable organomegaly is noted. BACK: Shows spine grossly in the midline. Normal-appearing cervical lordotic curvature. There is moderately increased thoracic kyphosis, some flattening of the lumbar lordotic curvature with well-healed surgical scar noted. Lumbar paraspinous muscles show symmetrical on inspection, on palpation shows some moderate tenderness diffusely throughout the upper, middle and lower distrib ution of the paraspinous muscles, but without specific trigger points, without radiation of pain. The patient has good rotational motion of the lumbar spine, both laterally as well as extension and flexion without significant difficulty. EXTREMITIES: Lower extremities show deep tendon reflexes 1+ in the patellar and tendo calcaneus tendons. Motor exam is 4 on a scale of 5 with right dorsiflexion, extension, quadriceps and hamstring flexion and 4/5 on the left. Peripheral pulses are 1+ posterior tibial. No peripheral edema is noted bilaterally. Lower extremities are warm and dry. Patient ambulating with a walker. SKIN: Shows warm and dry, good turgor. No edema. No sores, rashes or bruising throughout. Procedure: Procedure: Options were discussed with the patient. Patient's old chart was reviewed as her current medication regimen updated current review of systems updated today as well. We will proceed with a lumbar epidural steroid injection today with fluoroscopic guidance. Risks were discussed including but not limited to: Bleeding, infection, possibility of epidural hematoma and subsequent neurological compromise, dural puncture, headaches, spinal cord and/or nerve damage, side effects of steroid medication, and poor results regarding pain control. Patient understands and wished to proceed. Patient return to clinic in approximately 2 weeks for follow-up, was counseled as to return appointment, activity level, and side effects to be aware of. Medication Injected: Med Injected: Procedure is lumbar epidural steroid injection under local anesthetic using sterile prep and drape at the L5-S1 level using C-arm fluoroscopic guidance in both AP and lateral views medications injected is 20 mg dexamethasone +10mL preservative-free normal saline and 2 mL contrast- condition at discharge is stable patient tolerated procedure well had no complications. Condition at Discharge: Condition at Discharge: Condition at discharge stable, paced tolerated procedure well and had no complications. DAVE SCHROEDER MD Feb 05, 2022 11:33
--- NOTE | 2022-02-05 11:34 | PDOC4 ---
Procedure Note: ICD 10 Code: ICD 10 Code: M54.16 Mfive 1.36 M4 8.06 M 96.1 Procedure Note: Patient was consented for lumbar epidural steroid injection with fluoroscopic guidance. Risks were discussed including but not limited to: Bleeding, infection, possibility of epidural hematoma and subsequent neurological compr omise, dural puncture, headaches, spinal cord and/or nerve damage, side effects of steroid medication, and poor results regarding pain control. Patient understands and wished to proceed. Procedure is lumbar epidural steroid injection under local anesthetic using sterile prep and drape at the L5-S1 level using C-arm fluoroscopic guidance in both AP and lateral views medications injected is 20 mg dexamethasone +10mL preservative-free normal saline and 2 mL contrast- condition at discharge is stable patient tolerated procedure well had no complications. DAVE SCHROEDER MD Feb 05, 2022 11:34
== END | disposition home or self-care (01) ==
LOC: PNCL 09:56
PROVIDERS: ATTEND Anesthesiology
DX: M51.16 Intervertebral disc disorders with radiculopathy, lumbar region (principal); M48.061 Spinal stenosis, lumbar region without neurogenic claudication; M47.26 Other spondylosis with radiculopathy, lumbar region; M96.1 Postlaminectomy syndrome, not elsewhere classified; Z79.82 Long term (current) use of aspirin; Z79.899 Other long term (current) drug therapy; Z88.8 Allergy status to other drugs, medicaments and biological substances
CPT/HCPCS: 62323; J1100; Q9965

== ENCOUNTER 2022-02-09 15:29 | Inpatient (IN) | payer MEDICARE ==
[~2022-02-09] VITALS: Ht 162.6 cm; Wt 93.6 kg
[~2022-02-09 15:29] MED LIST changes: -AMOX1TAB10 PO; -DEXAMETHASONE PRES.FREE 10 MG/ML VIAL. ONE; -HYDR12.575 PO; -IOHEXOL 180 MG/ML 10 ML VIAL. ONE
--- NOTE | 2022-02-09 15:53 | PHYS DOC ---
Past Medical History Past Medical History: GERD, Hypertension Additional Past Medical Histor: Bladder incontinence Past Surgical History: Hysterectomy, Tonsillectomy Additional Past Surgical Histo: Cataract surgery Smoking Status: Never Smoker Alcohol Use: None Adult General Chief Complaint Chief Complaint: SHORTNESS OF BREATH HPI HPI Patient is a 89 year old female presenting to the emergency department for evaluation of cough and shortness of breath that has been going on since Tuesday which is now 4 days ago. She says she feels tightness in her chest as well and she can barely walk 2-3 steps without becoming severely dyspneic. Patient says that the cough is nonproductive and she has had no measured fevers and the cough has actually resolved but the shortness of breath and chest tightness has persisted. Patient denies history of asthma or COPD and she also denies any history of coronary artery disease or congestive heart failure. She appears to be dyspneic but nontoxic with normal vital signs other than tachycardia noted. While I was in the room her oxygen saturation ranged from 93 to 95%. Review of Systems Review of Systems Constitutional: Denies fever or chills [] Eyes: Denies change in visual acuity, redness, or eye pain [] HENT: Denies nasal congestion or sore throat [] Respiratory: + cough and shortness of breath [] Cardiovascular: No additional information not addressed in HPI [] GI: Denies abdominal pain, nausea, vomiting, bloody stools or diarrhea [] : Denies dysuria or hematuria [] Musculoskeletal: Denies back pain or joint pain [] Integument: Denies rash or skin lesions [] Neurologic: Denies headache, focal weakness or sensory changes [] All other systems were reviewed and found to be within normal limits, except as documented in this note. Current Medications Current Medications Current Medications Medications (Trade) Dose Ordered Sig/Archie Start Time Stop Time Status Last Admin Dose Admin Azithromycin (Zithromax) 500 mg 1X ONCE 02/09/22 17:45 02/09/22 17:49 DC Ceftriaxone Sodium (Rocephin) 1 gm 1X ONCE 02/09/22 17:45 02/09/22 17:49 DC Info (CONTRAST GIVEN -- Rx MONITORING) 1 each PRN DAILY PRN 02/09/22 17:15 02/11/22 17:14 Iohexol (Omnipaque 350 Mg/ml) 90 ml 1X ONCE 02/09/22 17:15 02/09/22 17:16 DC 02/09/22 17:25 90 ML Allergies Allergies Allergies Coded Allergies Type Severity Reaction Last Updated Verified atorvastatin Adverse Reaction Intermediate 06/03/20 Yes bupropion Adverse Reaction Intermediate 06/03/20 Yes rosuvastatin Adverse Reaction Intermediate 06/03/20 Yes Physical Exam Physical Exam Constitutional: Well developed, well nourished, no acute distress, non-toxic appearance. [] HENT: Normocephalic, atraumatic, bilateral external ears normal, oropharynx moist, no oral exudates, nose normal. [] Eyes: PERRLA, EOMI, conjunctiva normal, no discharge. [] Neck: Normal range of motion, no tenderness, supple, no stridor. [] Cardiovascular:Heart rate regular rhythm, no murmur [] Lungs & Thorax: Bilateral breath sounds clear to auscultation [] Abdomen: Bowel sounds normal, soft, no tenderness, no masses, no pulsatile masses. [] Skin: Warm, dry, no erythema, no rash. [] Back: No tenderness, no CVA tenderness. [] Extremities: No tenderness, no cyanosis, no clubbing, ROM intact, no edema. [] Neurologic: Alert and oriented X 3, normal motor function, normal sensory function, no focal deficits noted. [] Current Patient Data Vital Signs Vital Signs Date Time Temp Pulse Resp B/P (MAP) Pulse Ox O2 Delivery O2 Flow Rate FiO2 02/09/22 17:07 92 130/59 (82) 92 Room Air 02/09/22 15:33 97.6 14 97.6 Lab Values Laboratory Tests Test 02/09/22 16:25 White Blood Count 8.6 x10^3/uL (4.0-11.0) Red Blood Count 3.93 x10^6/uL (3.50-5.40) Hemoglobin 12.3 g/dL (12.0-15.5) Hematocrit 35.5 % (36.0-47.0) L Mean Corpuscular Volume 90 fL (79-100) Mean Corpuscular Hemoglobin 31 pg (25-35) Mean Corpuscular Hemoglobin Concent 35 g/dL (31-37) Red Cell Distribution Width 12.9 % (11.5-14.5) Platelet Count 202 x10^3/uL (140-400) Neutrophils (%) (Auto) 66 % (31-73) Lymphocytes (%) (Auto) 20 % (24-48) L Monocytes (%) (Auto) 11 % (0-9) H Eosinophils (%) (Auto) 2 % (0-3) Basophils (%) (Auto) 1 % (0-3) Neutrophils # (Auto) 5.7 x10^3/uL (1.8-7.7) Lymphocytes # (Auto) 1.7 x10^3/uL (1.0-4.8) Monocytes # (Auto) 1.0 x10^3/uL (0.0-1.1) Eosinophils # (Auto) 0.1 x10^3/uL (0.0-0.7) Basophils # (Auto) 0.1 x10^3/uL (0.0-0.2) Prothrombin Time 12.7 SEC (11.7-14.0) Prothrombin Time INR 1.0 (0.8-1.1) Activated Partial Thromboplast Time 33 SEC (24-38) D-Dimer (Ivonne) 0.71 ug/mlFEU (0.00-0.50) H Sodium Level 137 mmol/L (136-145) Potassium Level 3.4 mmol/L (3.5-5.1) L Chloride Level 99 mmol/L (98-107) Carbon Dioxide Level 28 mmol/L (21-32) Anion Gap 10 (6-14) Blood Urea Nitrogen 16 mg/dL (7-20) Creatinine 1.1 mg/dL (0.6-1.0) H Estimated GFR (Cockcroft-Gault) 46.8 BUN/Creatinine Ratio 15 (6-20) Glucose Level 130 mg/dL (70-99) H Lactic Acid Level 1.2 mmol/L (0.4-2.0) Calcium Level 8.7 mg/dL (8.5-10.1) Total Bilirubin 0.5 mg/dL (0.2-1.0) Aspartate Amino Transferase (AST) 11 U/L (15-37) L Alanine Aminotransferase (ALT) 17 U/L (14-59) Alkaline Phosphatase 47 U/L (46-116) Troponin I High Sensitivity 10 ng/L (4-50) HH-Hpo-M-Type Natriuretic Peptide 360 pg/mL (0-449) Total Protein 6.4 g/dL (6.4-8.2) Albumin 3.3 g/dL (3.4-5.0) L Albumin/Globulin Ratio 1.1 (1.0-1.7) Thyroid Stimulating Hormone (TSH) 3.312 uIU/mL (0.358-3.74) Laboratory Tests 02/09/22 16:25 Laboratory Tests 02/09/22 16:25 EKG EKG Sinus rhythm at 100 bpm with leftward axis no ST elevation or depression and normal T waves. Radiology/Procedures Radiology/Procedures [] Course & Med Decision Making Course & Med Decision Making Patient may have slightly decreased breath sounds but no obvious wheezing. I offered to give her something for pain and cough but she refused. I will check labs and imaging and reassess. Chest x-ray was read with pneumonia. Patient did ambulate to the bathroom and appeared to be quite dyspneic. I had extensive discussion with patient and daughter regarding her diagnosis and plan of care and the daughter felt that she was far too dyspneic to go home and request admission to the hospital. Given her age and COVID 80s and presenting symptoms with plan for admission for further observation and treatment. Patient admitted in stable condition. Dragon Disclaimer Dragon Disclaimer This electronic medical record was generated, in whole or in part, using a voice recognition dictation system. Departure Departure Impression: Primary Impression: Pneumonia Additional Impression: Dyspnea Disposition: ADMITTED INPATIENT Admitting Physician: AFSANEH Baker) Condition: IMPROVED Referrals: BEVERLEY CASTRO (PCP) Problem Qualifiers Primary Impression: Pneumonia Pneumonia type: due to unspecified organism Laterality: unspecified laterality Lung location: unspecified part of lung Qualified Codes: J18.9 - Pneumonia, unspecified organism MELANIE MILLER DO Feb 09, 2022 15:53
[2022-02-09 16:37] LABS: BASO # 0.1 x10^3/uL (0.0-0.2); BASO % 1 % (0-3); EOS # 0.1 x10^3/uL (0.0-0.7); EOS % 2 % (0-3); HEMATOCRIT 35.5 % (36.0-47.0); HEMOGLOBIN 12.3 g/dL (12.0-15.5); LYMPH # 1.7 x10^3/uL (1.0-4.8); LYMPH % 20 % (24-48); MEAN CORPUSCULAR HEMOGLOBIN 31 pg (25-35); MEAN CORPUSCULAR HGB CONC 35 g/dL (31-37); MEAN CORPUSCULAR VOLUME 90 fL (79-100); MONO % 11 % (0-9); NEUT # 5.7 x10^3/uL (1.8-7.7); NEUT % 66 % (31-73); PLATELET COUNT 202 x10^3/uL (140-400); RED BLOOD COUNT 3.93 x10^6/uL (3.50-5.40); RED CELL DISTRIBUTION WIDTH 12.9 % (11.5-14.5); WHITE BLOOD COUNT 8.6 x10^3/uL (4.0-11.0)
--- NOTE | 2022-02-09 16:46 | RAD ---
XR CHEST 1V 02/09/2022 4:41 PM INDICATION: Shortness of air, cough COMPARISON: None available TECHNIQUE: Portable frontal view of the chest is provided. FINDINGS: The cardiomediastinal silhouette is within normal limits. Bibasilar interstitial changes are present. There are no significant pleural effusions. There is no pulmonary vascular congestion. No pneumothora x. No suspicious osseous abnormality. IMPRESSION: Bibasilar interstitial airspace disease as may be seen with pneumonitis of infectious/inflammatory et iology versus chronic interstitial edema. No priors are available for comparison. If this finding is chronic and could be associated with chronic interstitial lung disease. Electronically signed by: Felicia Stanton MD (02/09/2022 4:43 PM) [id number]
[2022-02-09 16:47] LABS: PROTHROMBIN TIME PATIENT 12.7 SEC (11.7-14.0)
[2022-02-09 16:52] LABS: D-DIMER 0.71 ug/mlFEU (0.00-0.50)
[2022-02-09 16:55] LABS: CALCIUM 8.7 mg/dL (8.5-10.1); CREATININE 1.1 mg/dL (0.6-1.0); GFR 46.8; POTASSIUM 3.4 mmol/L (3.5-5.1)
[2022-02-09 17:01] LABS: ALBUMIN 3.3 g/dL (3.4-5.0); ALBUMIN/GLOBULIN RATIO 1.1 (1.0-1.7); TOTAL BILIRUBIN 0.5 mg/dL (0.2-1.0); TOTAL PROTEIN 6.4 g/dL (6.4-8.2)
[2022-02-09] MEDS ORDERED: IOHEXOL 350 MG/ML 100 ML VIAL. ONE (17:12)
[2022-02-09] MEDS ORDERED: IOHEXOL 350 MG/ML 100 ML VIAL. IV ONE (17:15)
[2022-02-09] MEDS ORDERED: CONTRAST GIVEN. MC PRN (17:15)
[2022-02-09] MEDS ORDERED: AZITHROMYCIN 250 MG TABLET. PO ONE (17:45)
[2022-02-09] MEDS ORDERED: cefTRIAXone IV Push 1 GM VIAL. IVP ONE (17:45)
--- NOTE | 2022-02-09 17:50 | RAD ---
EXAM: CT chest with contrast - pulmonary embolus protocol CLINICAL HISTORY: Reason: soa, elevated dimer COMPARISON: 02/09/2022 TECHNIQUE: CT of the chest following the administration of intravenous contrast during the pulmonary arterial phase. Axial, coronal and sagittal reformatted images were generated including MIP images. ---PQRS compliance statement - One or more of the following individualized dose reduction techniques were utilized for this study: 1. Automated exposure control 2. Adjustment of the mA and/or kV according to patient size 3. Use of iterative reconstruction technique--- FINDINGS: CHEST: Diagnostic quality: Adequate. Pulmonary emboli: None seen Right heart strain: None Pulmonary arteries: Normal in caliber. Heart is not enlarged. No pericardial effusion. Coronary, aortic root and mitral calcifications. No pleural effusion or pneumothorax. Multiple 3 to 4 mm lung nodules are seen bilaterally. For example in the right upper lobe a 3 mm lung nodule is seen on image 37. 4 mm groundglass nodule is seen in the left lower lobe (image 82). A 6 m m right lower lobe lung nodule at the posterior costophrenic angle (series 3 image 127). Middle lobe lung nodule measures 6 mm (image 94). No mediastinal or hilar lymphadenopathy. No axillary lymphadenopathy. Visualized Upper abdomen: Left upper pole renal cyst is partially profiled with peripheral calcifica tion. Bones: Multilevel degenerative changes of the spine are seen. Bulky endplate osteophytes are seen at multiple levels. IMPRESSION: 1. Multiple lung nodules are seen measuring up to 6 mm in the middle lobe and right lower lobe. Per Fleischner Society guidelines for incidentally found multiple solid nodules measuring 6-8 mm, initial CT follow-up is recommended in 3-6 months. Additional follow-up can be considered in 18-24 month bas ed on risk factors. 2. Left upper pole renal cystic lesion partially profiled with peripheral calcifications. This shoul d be further assessed by renal ultrasound. Electronically signed by: Navid Duque MD (02/09/2022 5:47 PM) [id number]
[2022-02-09] MEDS: IPRATRPIUM/ALBUTEROL 0.5/2.5MG 3 ML NEBU. NEB SCH (17:58)
[2022-02-09 17:59] LABS: INFLUENZA A PATIENT NEGATIVE (NEGATIVE); INFLUENZA B PATIENT NEGATIVE (NEGATIVE)
[2022-02-09] MEDS ORDERED: ONDANSETRON PF 4 MG/2 ML VIAL. IVP PRN (18:00)
[2022-02-09] MEDS ORDERED: CALCIUM CARBONATE 500 MG TAB.CHEW PO PRN (19:45)
[2022-02-09] MEDS ORDERED: ELECTROLYTE (NON-ICU) PROTOCOL. MC PRN (19:45)
[2022-02-09] MEDS ORDERED: METHOCARBAMOL 750 MG TABLET PO PRN (19:45)
[2022-02-09] MEDS ORDERED: ACETAMINOPHEN 325 MG TABLET. PO PRN (19:45)
[2022-02-09 20:30] VITALS: BP 186/76
--- NOTE | 2022-02-09 20:30 | NUR ---
The patient, STEPHANIE NICHOLSON, 89 y/o, F admitted by CINTHIA KANG MD, was given written information regarding hospital policies, unit procedures and contact persons. Valuables were checked and left in room. Daughter given passcode at bedside. All needs met. Will continue to monitor.
[2022-02-09] MEDS: SENNOSIDES/DOCUSATE 8.6/50MG TABLET. PO SCH (20:42)
[2022-02-09] MEDS: SIMVASTATIN 40 MG TABLET. PO SCH (20:42)
[2022-02-09] MEDS: GABAPENTIN 300 MG CAPSULE. PO SCH (20:42)
[2022-02-09] MEDS: PRAMIPEXOLE 0.25 MG TABLET. PO SCH (20:43)
[2022-02-09] MEDS: ALPRAZolam 0.25 MG TABLET PO SCH (20:43)
[2022-02-09] MEDS: HEPARIN for SUB-Q USE 5,000 UNIT/ML VIAL. SQ SCH (20:44)
[2022-02-09 22:54] LABS: BACTERIA,URINE 0 /HPF (0-FEW); RBC,URINE 0 /HPF (0-2)
[2022-02-09 23:00] VITALS: BP 128/39
--- NOTE | 2022-02-10 02:13 | EKG ---
[facility] [address] [place] [address] Test Date: 2022-02-09 Test Time: 15:58:41 Pat Name: STEPHANIE NICHOLSON Department: Room: 201 1 Gender: F Vehicle Sales Professional: : [id number] Requested By: MELANIE MILLER Order Number: [id number] Reading MD: Mirza Smiley Measurements Intervals [place] Rate: 100 P: 41 WV: 200 QRS: -12 QRSD: 74 T: 29 QT: 356 QTc: 462 Interpretive Statements SINUS RHYTHM LEFTWARD AXIS Electronically Signed On 02-20-2022 9:39:40 CDT by Mirza Smiley
[2022-02-10 03:00] VITALS: BP 142/65
[2022-02-10] MEDS: HEPARIN for SUB-Q USE 5,000 UNIT/ML VIAL. SQ SCH ×3 (05:40→21:32)
[2022-02-10 07:00] VITALS: BP 135/59
[2022-02-10] MEDS: IPRATRPIUM/ALBUTEROL 0.5/2.5MG 3 ML NEBU. NEB SCH ×3 (07:28→15:16)
[2022-02-10] MEDS: PANTOPRAZOLE 40 MG TABLET.DR. PO SCH (08:19)
[2022-02-10] MEDS: hydroCHLOROthiazide 12.5 MG TABLET PO SCH (08:20)
[2022-02-10] MEDS: LOSARTAN POTASSIUM 50 MG TABLET. PO SCH (08:20)
[2022-02-10] MEDS: GABAPENTIN 300 MG CAPSULE. PO SCH ×3 (08:20→21:19)
[2022-02-10] MEDS: ASPIRIN CHEWABLE 81 MG TABLET. PO SCH (08:20)
[2022-02-10] MEDS: SENNOSIDES/DOCUSATE 8.6/50MG TABLET. PO SCH ×2 (08:20→21:19)
[2022-02-10] MEDS: PRAMIPEXOLE 0.25 MG TABLET. PO SCH ×2 (08:21→21:19)
[2022-02-10] MEDS: ALPRAZolam 0.25 MG TABLET PO SCH ×3 (08:21→21:19)
[2022-02-10] MEDS: FLUoxetine HCL 20 MG CAPSULE PO SCH (08:21)
[2022-02-10] MEDS ORDERED: POTASSIUM CHLORIDE 20 MEQ TABLET.ER. PO ONE (08:30)
[2022-02-10 09:49] LABS: BASO # 0.1 x10^3/uL (0.0-0.2); BASO % 1 % (0-3); EOS # 0.1 x10^3/uL (0.0-0.7); EOS % 1 % (0-3); HEMATOCRIT 35.1 % (36.0-47.0); HEMOGLOBIN 11.5 g/dL (12.0-15.5); LYMPH # 1.7 x10^3/uL (1.0-4.8); LYMPH % 20 % (24-48); MEAN CORPUSCULAR HEMOGLOBIN 30 pg (25-35); MEAN CORPUSCULAR HGB CONC 33 g/dL (31-37); MEAN CORPUSCULAR VOLUME 91 fL (79-100); MONO # 0.9 x10^3/uL (0.0-1.1); MONO % 11 % (0-9); NEUT # 5.7 x10^3/uL (1.8-7.7); NEUT % 67 % (31-73); PLATELET COUNT 187 x10^3/uL (140-400); RED BLOOD COUNT 3.85 x10^6/uL (3.50-5.40); RED CELL DISTRIBUTION WIDTH 13.2 % (11.5-14.5); WHITE BLOOD COUNT 8.5 x10^3/uL (4.0-11.0)
[2022-02-10 09:58] LABS: CALCIUM 8.8 mg/dL (8.5-10.1); CREATININE 0.9 mg/dL (0.6-1.0); POTASSIUM 3.2 mmol/L (3.5-5.1)
--- NOTE | 2022-02-10 10:19 | HP ---
DATE OF SERVICE: 02/10/2022 ADMIT DATE: 02/09/2022 CHIEF COMPLAINT: Shortness of breath. HISTORY OF PRESENT ILLNESS: The patient is a pleasant 89-year-old female who appears younger than her stated age. She presented to the ER with shortness of breath. Chest x-ray showed a possible right lower lobe pneumonia. She also has a UTI. I discussed the case with ER physician and her son. We are going to admit the patient, give her IV antibiotics. PAST MEDICAL HISTORY AND PAST SURGICAL HISTORY: GERD, hypertension, bladder incontinence, hysterectomy, tonsillectomy, cataract surgery. ALLERGIES: ATORVASTATIN, BUPROPION AND LOVASTATIN. FAMILY HISTORY: Diabetes. SOCIAL HISTORY: She lives alone. Does not drink, smoke or take drugs. MEDICATIONS: Reviewed, please refer to the MRAD. REVIEW OF SYSTEMS: GENERAL: No history of weight change, weakness or fevers. SKIN: No bruising, hair changes or rashes. EYES: No blurred, double or loss of vision. NOSE AND THROAT: No history of nosebleeds, hoarseness or sore throat. HEART: No history of palpitations, chest pain or shortness of breath on exertion. LUNGS: Denies cough, hemoptysis, wheezing or shortness of breath. GASTROINTESTINAL: Denies changes in appetite, nausea, vomiting, diarrhea or constipation. GENITOURINARY: No history of frequency, urgency, hesitancy or nocturia. NEUROLOGIC: Denies history of numbness, tingling, tremor or weakness. PSYCHIATRIC: No history of panic, anxiety or depression. ENDOCRINE: No history of heat or cold intolerance, polyuria or polydipsia. EXTREMITIES: Denies muscle weakness, joint pain, pain on walking or stiffness. PHYSICAL EXAMINATION: VITALS: Within normal limits and are stable. GENERAL: No apparent distress. Alert and oriented. HEENT: normocephalic atraumatic, external auditory canals are patent. EYES: Extraocular muscles are intact, pupils are equally round and reactive to light and accommodation. MUSCULOSKELETAL: Well developed, well nourished, good range of motion. ENDOCRINE: No thyromegaly was palpated. LYMPHATICS: No cervical chain or axillary nodes were noted. HEMATOPOIETIC: No bruising. NECK: Supple, no JVD, no thyromegaly was noted. LUNGS: Clear to auscultation in all lung mcdermott without rhonchi or wheezing. HEART: RRR, S1, S2 present. Peripheral pulses intact, no obvious murmurs were noted. ABDOMEN: Soft, nontender. Positive bowel sounds no organomegaly, normal bowel sounds. EXTREMITIES: Without any cyanosis, clubbing, or edema. Pedal pulses intact, Homans sign is negative. NEUROLOGIC: Normal speech, normal tone. A and O x 3, moves all extremities, no obvious focal deficits. PSYCHIATRIC: Normal affect, normal mood. Stable. SKIN: No ulcerations or rashes, good skin turgor, no jaundice. VASCULAR: Good capillary refill, neurovascular bundle appears to be intact. LABORATORY DATA: Urinalysis shows leukocyte esterase and 11-20 white cells. Potassium is a little low at 3.4. White count 8.6. COVID testing negative. Flu testing negative. Chest x-ray shows a possible right lower lobe infiltrate versus chronic interstitial disease. ASSESSMENT AND PLAN: Probable pneumonia and incidental finding of urinary tract infection and hypokalemia. The patient has been admitted. We will start IV antibiotics, IV fluids, home meds. Replace her potassium. Deep venous thrombosis prophylaxis. PT, OT. Trend labs. Encourage p.o. intake. C/[facility] – [place] DR: DONATO/christian TID: [id number]
[2022-02-10 11:00] VITALS: BP 106/40
[2022-02-10 15:15] VITALS: BP 130/61
[2022-02-10] MEDS ORDERED: cefTRIAXone IV Push 1 GM VIAL. IVP SCH (16:00)
[2022-02-10 19:00] VITALS: BP 115/46
[2022-02-10] MEDS ORDERED: diphenhydrAMINE HCL 25 MG CAPSULE PO PRN (19:00)
[2022-02-10] MEDS: SIMVASTATIN 40 MG TABLET. PO SCH (21:19)
[2022-02-10 23:00] VITALS: BP 111/42
[2022-02-11 03:00] VITALS: BP 138/50
[2022-02-11] MEDS: HEPARIN for SUB-Q USE 5,000 UNIT/ML VIAL. SQ SCH (06:27)
[2022-02-11 07:00] VITALS: BP 135/55
[2022-02-11] MEDS: ALPRAZolam 0.25 MG TABLET PO SCH (08:21)
[2022-02-11] MEDS: PRAMIPEXOLE 0.25 MG TABLET. PO SCH (08:21)
[2022-02-11] MEDS: FLUoxetine HCL 20 MG CAPSULE PO SCH (08:21)
[2022-02-11] MEDS: LOSARTAN POTASSIUM 50 MG TABLET. PO SCH (08:22)
[2022-02-11] MEDS: GABAPENTIN 300 MG CAPSULE. PO SCH (08:22)
[2022-02-11] MEDS: PANTOPRAZOLE 40 MG TABLET.DR. PO SCH (08:22)
[2022-02-11] MEDS: hydroCHLOROthiazide 12.5 MG TABLET PO SCH (08:22)
[2022-02-11] MEDS: ASPIRIN CHEWABLE 81 MG TABLET. PO SCH (08:22)
[2022-02-11] MEDS: SENNOSIDES/DOCUSATE 8.6/50MG TABLET. PO SCH (08:23)
[2022-02-11 11:00] VITALS: BP 124/39
[2022-02-11] MEDS ORDERED: AMOX1TAB10 PO (11:25)
[2022-02-11] MEDS ORDERED: HYDR12.575 PO (11:25)
--- NOTE | 2022-02-11 11:26 | SNU/HH DC ---
DISCHARGE WITH HOME HEALTH DISCHARGE INFORMATION: Final Diagnosis: Problems Medical Problems: (1) Dyspnea Status: Acute (2) Pneumonia Status: Acute Condition on Discharge: Stable CODE STATUS: Code Status: Full HOME HEALTH: Face to Face: I certify this patient is under my care and that I, or a nurse practitioner or physician's customer service assistant working with me, had a face to face encounter that meets the physician face to face encounter requirements with this patient on []. Medical Complications: Pneumonia Retirement For: Assess & Educate Safety RN For Eval/Treatment: Yes Physical Therapy For: Evalulation/Treatment Occupational Therapy For: Evaluation/Treatment Home Health Aide For: Self-care TRACK EQUIPMENT OPERATOR For: Community Resources Pt Meets Homebound Status: Unsteady balance w/ amb, POST DISCHARGE ORDERS: DIET AFTER DISCHARGE: Cardiac CERTIFICATION STATEMENT: Certification Statement: Certification Statement: Based on the above finding, I certify that this patient is confined to the home and needs intermittent mcc care, physical therapy and/or speech therapy, or continues to need occupational therapy.~ This patient is under my care, and I have initiated the establishment of the plan of care.~ This patient will be followed by myself or a community physician who will periodically review the plan of care. Home Meds Active Scripts Amoxicillin/Potassium Clav (AMOX TR-K CLV 500-125 MG TAB) 1 Each Tablet, 1 TAB PO BID for ., #14 TAB Prov:CASTLE,NIAL K III DO 02/11/22 Hydrochlorothiazide (HYDROCHLOROTHIAZIDE CAPSULE ) 12.5 Mg Capsule, 12.5 MG PO DAILY for . for 30 Days, #30 CAP Prov:CASTLE,NIAL K III DO 02/11/22 Hydrocodone/Apap 5-325 (NORCO 5-325 TABLET) 1 Each Tablet, 1 EACH PO PRN Q6HRS PRN for PAIN, #15 as needed for pain Prov:DAREN MAK MD 06/18/20 Reported Medications Pramipexole Di-Hcl (MIRAPEX) 0.25 Mg Tablet, 0.25 MG PO BID for restless legs, TAB 02/05/22 Gabapentin (GABAPENTIN ) 300 Mg Capsule, 300 MG PO TID for NEUROGENIC PAIN, CAP 02/05/22 Ibuprofen (IBUPROFEN) 400 Mg Tablet, 400 MG PO PRN Q6HRS PRN for INFLAMMATION, TAB 12/08/20 Acetaminophen Er (ACETAMINOPHEN EXT.RELEASE) 650 Mg Tablet.er, 650 MG PO PRN Q8HRS PRN for FEVER/PAIN, TAB.SR 12/08/20 Methocarbamol (ROBAXIN-750) 750 Mg Tablet, 750 MG PO QID PRN for spasms, TAB 12/08/20 Multivitamin (MULTI VITAMIN DAILY) 1 Each Tablet, 1 TAB PO DAILY for supp for 30 Days, #30 TAB 0 Refills 06/03/20 Calcium/Magnesium (CALCIUM WITH MAGNESIUM TAB) 1 Each Tablet, 1 EACH PO DAILY for supp, TAB 06/03/20 Ubidecarenone (COQ-10) 100 Mg Capsule, 100 MG PO DAILY for supp, CAP 06/03/20 [place]-3/Dha/Epa/Fish Oil (Fish Oil 1,000 mg Softgel) 1,000 Mg Capsule, 5 CAP PO DAILY for supp for 30 Days, #150 CAP 0 Refills 06/03/20 Aspirin (ASPIRIN) 81 Mg Tab.chew, 1 TAB PO DAILY for heart, #30 TAB 3 Refills 06/03/20 Alprazolam (XANAX) 0.25 Mg Tablet, 1 TAB PO TID for anxiety, #60 TAB 06/03/20 Simvastatin (ZOCOR) 40 Mg Tablet, 1 TAB PO DAILY for hld, #90 TAB 1 Refill 06/03/20 Valsartan/Hydrochlorothiazide (DIOVAN HCT 160-12.5 MG TAB) 1 Each Tablet, 1 TAB PO DAILY for htn, #30 TAB 5 Refills 06/03/20 Estradiol (ESTRACE) 0.5 Mg Tablet, 1 TAB PO DAILY for hrt, #30 TAB 11 Refills 06/03/20 Fluoxetine Hcl (PROZAC) 40 Mg Capsule, 1 CAP PO DAILY for depression, #30 CAP 3 Refills 06/03/20 Omeprazole Magnesium (PRILOSEC) 10 Mg Suspdr.pkt, 20 MG PO DAILY for gerd, PKT 06/03/20 Discontinued Reported Medications Gabapentin (GABAPENTIN ) 300 Mg Capsule, 300 MG PO TID for NEUROGENIC PAIN, CAP 06/03/20 Pramipexole Di-Hcl (MIRAPEX) 0.25 Mg Tablet, 0.25 MG PO DAILY for restless legs, TAB 06/03/20 RYAN LO III DO Feb 11, 2022 11:26
--- NOTE | 2022-02-11 12:33 | DS ---
DATE OF DISCHARGE: 02/11/2022 ADMITTING DIAGNOSES: Pneumonia and urinary tract infection. DISCHARGE DIAGNOSES: Resolving pneumonia, resolving urinary tract infection, history of gastroesophageal reflux disease, hypertension, bladder incontinence, hysterectomy, tonsillectomy, cataract surgery. CONSULTS: None. PROCEDURES: None. HOSPITAL COURSE: The patient is a pleasant elderly female who presented with some shortness of breath and cough, was noted to have right lower lobe pneumonia. She also had incidental finding of a UTI. We gave her IV antibiotics. Today, I saw and examined her. She is doing great, wants to go home. We plan to discharge. DISPOSITION: Home. ACTIVITY: As tolerated. DIET: Low sodium. MEDICATIONS: Augmentin 500 p.o. b.i.d. We will continue her home medications. TOTAL TIME: [address]: DONATO/christian TID: [id number]
--- NOTE | 2022-02-11 14:00 | NUR ---
Discharge Note: STEPHANIE NICHOLSON Discharge instructions and discharge home medications reviewed with Patient and a copy given. All questions have been answered and understanding verbalized. The following instructions and handouts were given: follow up instructions, medication education Discontinued lines and drains: 20 guage right wrist, tip intact. patient tolerated well. Patient discharged to home with home health via daughter.
== END 2022-02-11 11:24 | disposition home health service (06) | DRG 178 ==
LOC: ER 15:29 → UNDOADMIN 17:30 → 2 NORTH 17:30 → OBSVTOIN 19:39 → ER 20:15 → UNDODISIN 02-11 13:50
PROVIDERS: ADMIT Student in an Organized Health Care Education/Training Program; ATTEND Student in an Organized Health Care Education/Training Program
DX: J15.6 Pneumonia due to other Gram-negative bacteria (principal); N39.0 Urinary tract infection, site not specified; E87.6 Hypokalemia; I10 Essential (primary) hypertension; Z83.3 Family history of diabetes mellitus; Z90.710 Acquired absence of both cervix and uterus; K21.9 Gastro-esophageal reflux disease without esophagitis; Z60.2 Problems related to living alone; Z20.822 Contact with and (suspected) exposure to COVID-19
CPT/HCPCS: 36415; 71045; 71275; 80048; 80053; 81001; 83605; 83880; 84443; 84484; 85025; 85379; 85610; 85730; 87086; 87428; 93005; 94640; 94760; 96374; G0238; G0378; G0379; J0696; J1644; Q9967; 97530-GP; 99285-25; Q0163